=== PATIENT | female | born 1990 | race Caucasian/White ===

== ENCOUNTER → 2016-08-07 | Outpatient (REF) | payer OTHER | END | disposition home or self-care (01) | LOC: M LAB REF 10:34 | PROVIDERS: ATTEND Physician Assistant | DX: J02.9 Acute pharyngitis, unspecified (principal) ==

== ENCOUNTER 2016-09-09 21:11 | Emergency (ER) | payer BC, SELFPAY ==
[~2016-09-09] VITALS: Ht 170.2 cm; Wt 70.3 kg
[2016-09-09 21:12] VITALS: BP 142/92
[2016-09-09] MEDS ORDERED: TIZA2CAP3 PO (21:19)
[2016-09-09] MEDS ORDERED: NORT25CA2 PO (21:19)
[2016-09-09] MEDS ORDERED: predniSONE 20 MG TAB PO ONE (23:30)
[2016-09-09] MEDS ORDERED: FAMOTIDINE 20 MG TAB PO ONE (23:30)
== END 2016-09-09 23:42 | disposition home or self-care (01) ==
LOC: M ED 21:56
DX: R22.0 Localized swelling, mass and lump, head (principal); Z79.899 Other long term (current) drug therapy

== ENCOUNTER → 2018-03-05 | Outpatient (CLI) | payer BC | LOC: M WUC 14:38 | DX: M25.511 Pain in right shoulder (principal) ==

== ENCOUNTER → 2020-02-11 | Outpatient (REF) | payer OTHER, SELFPAY ==
[~2020-02-11] MED LIST: NORT25CA2 PO; TIZA2CAP PO
[2020-02-11 17:48] LABS: APPEARANCE, URINE HAZY (CLEAR); BACTERIA, URINE AUTO 2+ (NEGATIVE); BILIRUBIN, URINE AUTO NEGATIVE (NEGATIVE); BLOOD, URINE BLOOD 1+ (NEGATIVE); COLOR, URINE YELLOW (YELLOW); GLUCOSE, URINE (UA) AUTO NEGATIVE (NEGATIVE); KETONE, URINE AUTO NEGATIVE (NEGATIVE); LEUKOCYTE ESTERASE, URINE AUTO 3+ (NEGATIVE); NITRITE, URINE AUTO POSITIVE (NEGATIVE); PROTEIN, URINE AUTO NEGATIVE (NEGATIVE); RBC, URINE AUTO 2 /HPF (0-3); SPECIFIC GRAVITY URINE AUTO 1.008 (1.002-1.035); SQUAMOUS EPITHELIAL CELL UR AU 2 /HPF (0-6); UROBILINOGEN, URINE AUTO 0.2 mg/dL (0.0-2.0); WBC, URINE AUTO 102 /HPF (0-3)
== END ==
LOC: M LAB 17:20
PROVIDERS: ATTEND Physician Assistant Medical
DX: N39.0 Urinary tract infection, site not specified (principal)

== ENCOUNTER 2020-08-08 11:49 | Emergency (ER) | payer BC, SELFPAY ==
[~2020-08-08] VITALS: Ht 167.6 cm; Wt 78.4 kg
--- OUTSIDE RECORDS SUMMARY | 2020-08-08 11:54 | CCD | Continuity of Care Document ---
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 for 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 (general) (routine) w/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 Encounter for oth general cnsl and advice on contraception Encounter for surveillance of contraceptive pills Human immunodeficiency virus [HIV] counseling Acute vaginitis Candidiasis of vulva and vagina Pruritus vulvae Other specified noninflammatory disorders of vagina Encounter for test, result negative Other sex counseling Encounter for oth general cnsl and advice on contraception Candidiasis of vulva and vagina Human immunodeficiency virus [HIV] counseling Encntr screen for infections w sexl mode of transmiss High risk heterosexual behavior Other sex counseling Encounter for oth general cnsl and advice on contraception Encounter for screening for human immunodeficiency virus Encounter for surveillance of contraceptive pills 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 for 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 (general) (routine) w/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 Encounter for surveillance of contraceptive pills Encounter for test, result negative Encounter for ot general cnsl and advice on contraception Other sex counseling Encounter for surveillance of contraceptive pills Encounter for initial prescription of contraceptive pills Encounter for test, result negative Encounter for initial prescription of contraceptive pills Encounter for ot general cnsl and advice on contraception Other sex counseling Human immunodeficiency virus [HIV] counseling Encounter for test, result negative Encntr screen for infections w sexl mode of transmiss High risk heterosexual behavior Encntr for 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 (general) (routine) w/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 Other sex counseling Encounter for ot general cnsl and advice on contraception Candidiasis of vulva and vagina Other specified noninflammatory disorders of vagina Encounter for ot general cnsl and advice on contraception Encntr screen for infections w sexl mode of transmiss High risk heterosexual behavior Encounter for ot general cnsl and advice on contraception Human immunodeficiency virus [HIV] counseling Encounter for test, result negative 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 for 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 (general) (routine) w/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 Encntr screen for infections w sexl mode of transmiss High risk heterosexual behavior Encounter for initial prescription of contraceptive pills Encounter for ot screening for malignant neoplasm of breast Human immunodeficiency virus [HIV] counseling Encntr screen for infections w sexl mode of transmiss High risk heterosexual behavior Encounter for ot general cnsl and advice on contraception Encounter for surveillance of contraceptive pills Other specified noninflammatory disorders of vagina Candidiasis of vulva and vagina Encounter for ot general cnsl and advice on contraception Encounter for surveillance of contraceptive pills Other chlamydial infection of lower genitourinary tract Encounter for test, result negative Encounter for initial prescription of contraceptive pills Encntr screen for infections w sexl mode of transmiss High risk heterosexual behavior Encounter for surveillance of injectable contraceptive Encounter for ot general cnsl and advice on contraception Other chlamydial infection of lower genitourinary tract Person consulting for explanation of exam or test findings Human immunodeficiency virus [HIV] counseling Dysuria Encounter for surveillance of injectable contraceptive Encounter for ot general cnsl and advice on contraception Encntr screen for infections w sexl mode of transmiss High risk heterosexual behavior Ulceration of vagina Encounter for test, result negative Encntr for 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 (general) (routine) w/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 Encounter for oth general cnsl and advice on contraception Encounter for initial prescription of injectable contracep Encntr screen for infections w sexl mode of transmiss High risk heterosexual behavior Other specified noninflammatory disorders of vagina Acute vaginitis Encounter for screening for malignant neoplasm of cervix Human immunodeficiency virus [HIV] counseling Chlamydial infection - Active Chlamydia PCR positive - Active Procedures Procedure Date URINE TEST CHYLMD TRACH, URINE N.GONORRHOEAE, URINE CHYLMD TRACH, Pharyngeal N.GONORRHOEAE, Pharyngeal CHYLMD TRACH, Rectal N.GONORRHOEAE, Rectal PREV VISIT, EST, AGE 18-39 HCS Without Test CVR Blood Pressure CVR Med.Svc. Thyroid Palp. CVR Med.Svc. Heart/Lung Ausc. CVR Med.Svc. Breast Exam CVR Med.Svc. Abdominal Palp. CVR Med.Svc. Extremities CVR Med.Svc. Method Initiation CVR Med.Svc. Method Cessation CVR Construction Project Manager.Svc. Contraceptive CVR Construction Project Manager.Svc. Other CVR Construction Project Manager.Svc. STI / H Results Test Name Date and Time Measure Units Reference Range Abnormal Flag St atus Comments Panel Description: High Sensitivity Urine Test Fi nal High Sensitivity Urine Test 10:47:50 N egativeLot: [id number]: 02/18/2022 Final Advance Directives Directive Yes / No Effective Date File Name No Information Encounters Encounter Description Practice Location Reason(s) For Visit Diagnose s Date Provider Providers Copied on Encounter PREV VISIT, EST, AGE 18-39 [facility], [address] [place], [place], [id number], tel:[phone] [facility] [place] Prevent ative Visit (chief complaint) Encounter for test, result neg ativeEncounter for oth general cnsl and advice on contraceptionEncounter for surveillance of contraceptive pillsOther sex counselingEncntr screen for infections w sexl mode of transmissHuman immunodeficiency virus [HIV] counselingEncntr for 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 (general) (routine) w/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 Adrienne Faulkner. [address] [place] [address], [id number], . tel:[phone] Referring Provider: Lucie Parish, [address] [place] [address], [id number]. tel:[phone] [facility], [address] [place] [address], [id number], tel:[phone] [facility] [place] No Information Valentin everett Quezada. [address] [place] [address], [id number], [place]. tel:[phone] [facility], [address] [place] [address], [id number], tel:[phone] [facility] [place] Encounter for oth g eneral cnsl and advice on contraceptionEncounter for surveillance of contraceptive pillsHuman immunodeficiency virus [HIV] counselingAcute vaginitisCandidiasis of vulva and vaginaPruritus vulvaeOther specified noninflammatory disorders of vagina Sammy Pizarro. [address] [place] [address], [id number], [place]. tel:[phone] Referring Provider: Moira Christianson, [address] [place] [address], [id number]. tel:[phone] [facility], [address] [place] [address], [id number], [place] tel:[phone] [facility] Encounter for pregn mckinley test, result negativeOther sex counselingEncounter for oth general cnsl and advice on contraceptionCandidiasis of vulva and vagina Lizett cullen. [address] [place] [address], [id number], . tel:[phone] Referring Provider: Jocy Phoenix, [address] [place] [address], [id number]. tel:[phone] [facility] [place], [address] [place] [address], [id number], [place] tel:[phone] [facility] [place] Human immunodeficie ncy virus [HIV] counselingEncntr screen for infections w sexl mode of transmissHigh risk heterosexual behaviorOther sex counselingEncounter for oth general cnsl and advice on contraceptionEncounter for screening for human immunodeficiency virusEncounter for surveillance of contraceptive pillsEncntr for 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 (general) (routine) w/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Body mass index (BMI) 25.0-25.9, adult Lizett Sandra. [address] [place] [address], [address] [place] [address], [place]. tel:[phone] Referring Provider: Jocy Phoenix, [address] [place] [address], [id number]. tel:[phone] [facility], [address] [place] [address], [id number], [place] tel:[phone] [facility] Encounter for surve illance of contraceptive pills Ramona Gamino. [address] [place], [place], [id number]. tel:[phone] [facility] [place], [address] [place] [address], [id number], [place] tel:[phone] [facility] Encounter for pregn mckinley test, result negativeEncounter for oth general cnsl and advice on contraceptionOther sex counselingEncounter for surveillance of contraceptive pillsEncounter for initial prescription of contraceptive pills Jin Watts. [address] [place] [address], [id number], [place]. tel:[phone] Referring Provider: Stefanie Abdi, [address] [place], [place], [id number]. tel:[phone] [facility], [address], [place], [id number], [place] tel:[phone] [facility] Encounter for pregn mckinley test, result negativeEncounter for initial prescription of contraceptive pillsEncounter for oth general cnsl and advice on contraceptionOther sex counseling Jin Watts. [address] [place], [place], [id number], [place]. tel:[phone] Referring Provider: Stefanie Abdi, [address] [place], [place], [id number]. tel:[phone] [facility], [address] [place] [address], [id number], [place] tel:[phone] [facility] Human immunodeficie ncy virus [HIV] counselingEncounter for test, result negativeEncntr screen for infections w sexl mode of transmissHigh risk heterosexual behaviorEncntr for 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 (general) (routine) w/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Other sex counselingEncounter for oth general cnsl and advice on contraceptionBody mass index (BMI) 26.0-26.9, adultCandidiasis of vulva and vagina Jin Watts. [address] [place], [place], [id number], [place]. tel:[phone] Referring Provider: Stefanie Abdi, [address] [place], [place], [id number]. tel:[phone] [facility], [address] [place] [address], [id number], [place] tel:[phone] [facility] Other specified non inflammatory disorders of vaginaEncounter for oth general cnsl and advice on contraceptionEncntr screen for infections w sexl mode of transmissHigh risk heterosexual behavior Clemente Tomlin. [address] [place], [place], [id number]. tel:[phone] Referring Provider: Sada Cornejo, [address] [place], [place], [id number]. tel:[phone] [facility], [address] [place] [address], [id number], tel:[phone] [facility] [place] Encounter for oth g eneral cnsl and advice on contraceptionHuman immunodeficiency virus [HIV] counselingEncounter for test, result negativeEncntr for 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 (general) (routine) w/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Encntr screen for infections w sexl mode of transmissHigh risk heterosexual behaviorEncounter for initial prescription of contraceptive pillsEncounter for oth screening for malignant neoplasm of breast Clemente Tomlin. [address] [place] [address], [id number]. tel:[phone] Referring Provider: Sada Cornejo, [address] [place] [address], [id number]. tel:[phone] [facility], [address] [place] [address], [id number], [place] tel:[phone] [facility] [place] Human immunodeficie ncy virus [HIV] counselingEncntr screen for infections w sexl mode of transmissHigh risk heterosexual behaviorEncounter for oth general cnsl and advice on contraceptionEncounter for surveillance of contraceptive pillsOther specified noninflammatory disorders of vaginaCandidiasis of vulva and vagina King Adeline. [address] [place] [address], [id number]. tel:[phone] Referring Provider: Adeline Mock, [address] [place] [address], [id number]. tel:[phone] [facility], [address] [place] [address], [id number], [place] tel:[phone] [facility] Encounter for oth g eneral cnsl and advice on contraceptionEncounter for surveillance of contraceptive pillsOther chlamydial infection of lower genitourinary tract Dieudonne gomez Leigh. [address] [place], [place], [id number], [place]. tel:[phone] [facility], [address], [place], [id number], [place] tel:[phone] [facility] Encounter for pregn mckinley test, result negativeEncounter for initial prescription of contraceptive pillsEncntr screen for infections w sexl mode of transmissHigh risk heterosexual behavior Ramón Ro. [address] [place], [place], [id number]. tel:[phone] [facility], [address], [place], [id number], [place] tel:[phone] [facility] [place] Encounter for surve illance of injectable contraceptiveEncounter for oth general cnsl and advice on contraceptionOther chlamydial infection of lower genitourinary tractPerson consulting for explanation of exam or test findings Marilyn Eugene. [address] [place], [place], [id number], [place]. tel:[phone] Referring Provider: Valorie Sanders, [address] [place] [address], [id number]. tel:[phone] [facility], [address] [place] [address], [id number], [place] tel:[phone] [facility] Human immunodeficie ncy virus [HIV] counselingDysuriaEncounter for surveillance of injectable contraceptiveEncounter for oth general cnsl and advice on contraceptionEncntr screen for infections w sexl mode of transmissHigh risk heterosexual behaviorUlceration of vagina Marilyn Eugene. [address] [place], [place], [id number], [place]. tel:[phone] Referring Provider: Valorie Sanders, [address] [place], [place], [id number]. tel:[phone] [facility], [address] [place] [address], [id number], tel:[phone] [facility] Encounter for pregn mckinley test, result negativeEncntr for 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 (general) (routine) w/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Encounter for oth general cnsl and advice on contraceptionEncounter for initial prescription of injectable contracepEncntr screen for infections w sexl mode of transmissHigh risk heterosexual behaviorOther specified noninflammatory disorders of vaginaAcute vaginitisEncounter for screening for malignant neoplasm of cervix Human immunodeficiency virus [HIV] counseling Ramón roman. [address] [place] [address], [id number]. tel:[phone] Referring Provider: Ro Melgar, [address] [place] [address], [id number]. tel:[phone] Family History Family Member Diagnosis Age At Onset Mother No history of Stroke Father No history of Stroke Sister No history of Myocardial infarction Maternal grandmother Cancer, unknown 50 Father Hypertension Sister No history of Stroke Father High cholesterol 1st degree relative No hx of coronary heart disease (female <65, male <55) Father No history of Myocardial infarction Mother No history of Myocardial infarction Brother No history of Stroke Paternal grandfather Alcoholism 1st degree relative No hx of venous thromboembolism 1st degree relative No hx of cancer of breast, colon, endome trium or ovary Immunizations Vaccine Date Status Comments No Information Payers Payer name Insurance type Covered republican ID Authorization(s ) Exchange [facility] [id number] Social History Type Description Quantity Date Captured Comments Alcohol Use Details Unknown Caffeine Use Details Unknown Tobacco Use Status No Information Smoking Status Never smoker Sex Female Vital Signs Date / Time: Height Weight BMI Pulse Rate Blood Pressure Temperatu re Respiratory Rate Body Surface Area Head Circumference BMI percentile Pulse Ox In haled Ox 10:34 AM 66.00 in 175.60 lbs 28.34 kg/meter(2) 122/7 8 mm[Hg] Chief Complaint And Reason For Visit Most recent encounter only, dated '07/31/2020 10:15'. Preventative Visit (chief complaint) Reason For Referral Reason For Referral No Information Plan Of Treatment Date Type Action Status Goal Dietary management education, gu idance, and counseling completed Appointment Carmen Anglin BOOKED History Of Present Illness Encounter Date Complaint History Of Present I llness No Information Functional Status Date Functional Assessment No Information Medications Administered Medication Instructions Dosage Effective Dates (start - stop) Sta tus Comments No Information Instructions Date Instruction Additional Informati on Dietary management education, guidance, and counseling Related to Body mass index (BMI) 25.0-25.9, adult Assessments Type Assessment Date assessment Encounter for test, result neg ative assessment Encounter for oth general cnsl and advic e on contraception assessment Encounter for surveillance of contracept jodie pills assessment Other sex counseling assessment Encntr screen for infections w sexl mode of transmiss assessment Human immunodeficiency virus [HIV] couns eling assessment 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 Anterior palpation - Normal. No abdominal tenderness. No hepatic enlargement. No splenic enlargement. No palpable mass. Cardiovascular Normal Heart rate - Regular rate. Rhythm - Regular. Heart sounds - Normal S1, Normal S2. Murmurs - None. Extremities - No edema. Extremity Normal No Cyanosis. No Neo a. Neck Exam Normal Inspection - Normal. Palpation - Normal. Thyroid gland - Normal. Cervical lymph nodes - Normal. Neurological Normal Level of consciousne ss - Normal. Orientation - Normal. Respiratory Normal Inspection - Normal. Auscultation - Normal. Effort - Normal. Skin Normal Inspection - Normal. Palpation/texture - Normal. Breast Normal Inspection - Bilater al: Normal. Palpation - Bilateral: Normal. Nipples - Bilateral: Normal. Lymph nodes - Normal.
[2020-08-08] MEDS ORDERED: ISIB1TAB (11:55)
[2020-08-08] MEDS ORDERED: IBUP200C25 PO (11:55)
--- OUTSIDE RECORDS SUMMARY | 2020-08-08 11:55 | CCD | Continuity of Care Document ---
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 Encounter [...] for surveillance of contraceptive pills Encntr for administrative office specialist exam (general) (routine) w/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 Encounter [...] transmiss High risk heterosexual behavior Encntr for administrative office specialist exam (general) (routine) w/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 Other [...] Encounter for test, result negative Encntr for administrative office specialist exam (general) (routine) w/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 Encntr [...] Encounter for test, result negative Encntr for administrative office specialist exam (general) (routine) w/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 Encounter [...] PCR positive - Active Procedures Procedure Date No Information Results Test Name Date and Time Measure Units Reference Range Abnormal Flag St atus Comments No Information Advance Directives Directive Yes / No Effective Date File Name No Information Encounters Encounter Description Practice Location Reason(s) For Visit Diagnose s Date Provider Providers Copied on Encounter [facility], [address] [place] [address], [id number], tel:[phone] [facility] [place] Encounter for pregn mckinley test, result negativeEncounter for oth general cnsl and advice on contraceptionEncounter for surveillance of contraceptive pillsOther sex counselingEncntr screen for infections w sexl mode of transmissHuman immunodeficiency virus [HIV] counselingEncntr for administrative office specialist exam (general) (routine) w/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 Adrienne Faulkner. [address] [place] [address], [id number], [place]. tel:[phone] Referring Provider: Lucie Parish, [address] [place] [address], [id number]. tel:[phone] [facility], [address] [place] [address], [id number], [place] tel:[phone] GAVI [place] No Information Gr everett Quezada. [address] [place] [address], [id number], [place]. tel:[phone] [facility], [address] [place] [address], [id number], [place] tel:[phone] [facility] [place] Encounter for oth g eneral cnsl and advice on contraceptionEncounter for surveillance of contraceptive pillsHuman immunodeficiency virus [HIV] counselingAcute vaginitisCandidiasis of vulva and vaginaPruritus vulvaeOther specified noninflammatory disorders of vagina Sammy Pizarro. [address] [place] [address], [id number], [place]. tel:[phone] Referring Provider: Moira Christianson, [address] [place], [place], [id number]. tel:[phone] [facility], [address] [place] [address], [id number], [place] tel:[phone] [facility] Encounter for pregn mckinley test, result negativeOther sex counselingEncounter for oth general cnsl and advice on contraceptionCandidiasis of vulva and vagina Lizett cullen. [address] [place] [address], [id number], . tel:[phone] Referring Provider: Jocy Phoenix, [address] [place] [address], [id number]. tel:[phone] [facility], [address] [place] [address], [id number], [place] tel:[phone] [facility] Human immunodeficie ncy virus [HIV] counselingEncntr screen for infections w sexl mode of transmissHigh risk heterosexual behaviorOther sex counselingEncounter for oth general cnsl and advice on contraceptionEncounter for screening for human immunodeficiency virusEncounter for surveillance of contraceptive pillsEncntr for administrative office specialist exam (general) (routine) w/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Body mass index (BMI) 25.0-25.9, adult Lizett Sandra. [address] [place] [address], [id number], [place]. tel:[phone] Referring Provider: Jocy Phoenix, [address] [place] [address], [id number]. tel:[phone] [facility], [address] [place] [address], [id number], [place] tel:[phone] [facility] Encounter for surve illance of contraceptive pills Ramona Gamino. [address] [place], [place], [id number]. tel:[phone] [facility], [address] [place] [address], [id number], tel:[phone] [facility] Encounter for pregn mckinley test, result negativeEncounter for oth general cnsl and advice on contraceptionOther sex counselingEncounter for surveillance of contraceptive pillsEncounter for initial prescription of contraceptive pills Jin Watts. [address] [place], [place], [id number], [place]. tel:[phone] Referring Provider: Stefanie Abdi, [address] [place] [address], [address] [place] [address]. tel:[phone] [facility], [address] [place] [address], [id number], tel:[phone] [facility] Encounter for pregn mckinley test, result negativeEncounter for initial prescription of contraceptive pillsEncounter for oth general cnsl and advice on contraceptionOther sex counseling Jin Watts. [address] [place] [address], [id number], . tel:[phone] Referring Provider: Stefanie Abdi, [address] [place], [place], [id number]. tel:[phone] [facility], [address] [place] [address], [id number], tel:[phone] [facility] Human immunodeficie ncy virus [HIV] counselingEncounter for test, result negativeEncntr screen for infections w sexl mode of transmissHigh risk heterosexual behaviorEncntr for administrative office specialist exam (general) (routine) w/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Other sex counselingEncounter for oth general cnsl and advice on contraceptionBody mass index (BMI) 26.0-26.9, adultCandidiasis of vulva and vagina Jin Watts. [address] [place], [place], [id number], [place]. tel:[phone] Referring Provider: Stefanie Abdi, [address] [place] [address], [id number]. tel:[phone] [facility], [address] [place] [address], [id number], [place] tel:[phone] [facility] Other specified non inflammatory disorders of vaginaEncounter for oth general cnsl and advice on contraceptionEncntr screen for infections w sexl mode of transmissHigh risk heterosexual behavior Clemente Tomlin. [address] [place], [place], [id number]. tel:[phone] Referring Provider: Sada Cornejo, [address] [place], [place], [id number]. tel:[phone] [facility], [address] [place] [address], [id number], [place] tel:[phone] [facility] [place] Encounter for oth g eneral cnsl and advice on contraceptionHuman immunodeficiency virus [HIV] counselingEncounter for test, result negativeEncntr for administrative office specialist exam (general) (routine) w/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Encntr screen for infections w sexl mode of transmissHigh risk heterosexual behaviorEncounter for initial prescription of contraceptive pillsEncounter for oth screening for malignant neoplasm of breast Clemente Tomlin. [address] [place] [address], [id number]. tel:[phone] Referring Provider: Sada Cornejo, [address] [place] [address], [id number]. tel:[phone] [facility], [address] [place] [address], [id number], [place] tel:[phone] [facility] Human immunodeficie ncy virus [HIV] counselingEncntr screen for infections w sexl mode of transmissHigh risk heterosexual behaviorEncounter for oth general cnsl and advice on contraceptionEncounter for surveillance of contraceptive pillsOther specified noninflammatory disorders of vaginaCandidiasis of vulva and vagina King Adeline. [address] [place], [place], [id number]. tel:[phone] Referring Provider: Adeline Mock, [address] [place], [place], [id number]. tel:[phone] [facility], [address] [place] [address], [id number], [place] tel:[phone] [facility] Encounter for oth g eneral cnsl and advice on contraceptionEncounter for surveillance of contraceptive pillsOther chlamydial infection of lower genitourinary tract Dieudonne Abraham. [address] [place], [place], [id number], [place]. tel:[phone] [facility], [address] [place] [address], [id number], [place] tel:[phone] [facility] Encounter for pregn mckinley test, result negativeEncounter for initial prescription of contraceptive pillsEncntr screen for infections w sexl mode of transmissHigh risk heterosexual behavior Ramón Starr. [address] [place] [address], [id number]. tel:[phone] [facility], [address] [place] [address], [id number], [place] tel:[phone] [facility] Encounter for surve illance of injectable contraceptiveEncounter for oth general cnsl and advice on contraceptionOther chlamydial infection of lower genitourinary tractPerson consulting for explanation of exam or test findings Marilyn Eugene. [address] [place], [place], [id number], [place]. tel:[phone] Referring Provider: Valorie Sanders, [address] [place] [address], [id number]. tel:[phone] [facility], [address] [place] [address], [id number], [place] tel:[phone] [facility] Human immunodeficie ncy virus [HIV] counselingDysuriaEncounter for surveillance of injectable contraceptiveEncounter for oth general cnsl and advice on contraceptionEncntr screen for infections w sexl mode of transmissHigh risk heterosexual behaviorUlceration of vagina Marilyn Eugene. [address] [place] [address], [address] [place] [address], . tel:[phone] Referring Provider: Valorie Sanders, [address] [place] [address], [id number]. tel:[phone] [facility], [address] [place] [address], [id number], tel:[phone] [facility] [place] Encounter for pregn mckinley test, result negativeEncntr for administrative office specialist exam (general) (routine) w/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Encounter for oth general cnsl and advice on contraceptionEncounter for initial prescription of injectable contracepEncntr screen for infections w sexl mode of transmissHigh risk heterosexual behaviorOther specified noninflammatory disorders of vaginaAcute vaginitisEncounter for screening for malignant neoplasm of cervix Human immunodeficiency virus [HIV] counseling Ramón roman. [address] [place] [address], [id number]. tel:[phone] Referring Provider: Ro Melgar, [address] [place] [address], [id number]. tel:[phone] Family History Family Member Diagnosis Age At [...] type Covered republican ID Authorization(s ) Exchange [facility] [id number] Social History Type Description Quantity Date Captured Comments Alcohol Use Details Unknown Caffeine Use Details Unknown Tobacco Use Status No Information Smoking Status Never smoker Sex Female Vital Signs Date / Time: Height Weight BMI Pulse Rate Blood Pressure Temperatu re Respiratory Rate Body Surface Area Head Circumference BMI percentile Pulse Ox In haled Ox No Information Chief Complaint And Reason For Visit No Information Reason For Referral Reason For Referral No [...] (BMI) 25.0-25.9, adult Assessments Type Assessment Date No Information Goals Health Concern Goal Type Priority Status Date No Information Medical Equipment Description Device [place] Device Identifier Effective Jigar es (start - stop) Status No Information Mental Status Date Cognitive Assessment No Information Health Concerns Observation Date No Information Concern Status Date No Information Physical Examination Exam Findings Details No Information
--- OUTSIDE RECORDS SUMMARY | 2020-08-08 11:55 | CCD | Continuity of Care Document ---
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 Name Role Phone Sammy KOROMA, Moira Unavailable Unavailable Allergies, Adverse Reactions, Alerts Substance Reaction Status Criticality No Known Allergies Active No Information Medications Medication Instructions Dosage Effective Dates (start - stop) Sta tus Comments No Information Problems Condition Effective Dates (start - stop) Clinical Status C omments Body mass index (BMI) 25.0-25.9, adult - Body mass index (BMI) 26.0-26.9, adult - Encounter for oth general cnsl and advice [...] for surveillance of contraceptive pills 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/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 Encounter for surveillance of contraceptive pills Encounter for test, result negative Encounter for oth general cnsl and advice on contraception Other sex counseling Encounter for surveillance of contraceptive pills Encounter for initial prescription of contraceptive pills Encounter for test, result negative Encounter for initial prescription of contraceptive pills Encounter for oth general cnsl and advice on contraception Other sex counseling Human immunodeficiency virus [HIV] counseling Encounter for test, result negative Encntr screen for infections w sexl mode of transmiss High risk heterosexual behavior 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/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 Other sex counseling Encounter for oth general cnsl and advice on contraception Candidiasis of vulva and vagina Other specified noninflammatory disorders of vagina Encounter for oth general cnsl and advice on contraception Encntr screen for infections w sexl mode of transmiss High risk heterosexual behavior Encounter for ot general cnsl and advice on contraception Human immunodeficiency virus [HIV] counseling Encounter for test, result negative 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 [address] [place] [address], [id number], . tel:[phone] [facility] [place], [address] [place] [address], [id number], tel:[phone] [facility] [place] Encounter for oth g eneral cnsl and advice on contraceptionEncounter for surveillance of contraceptive pillsHuman immunodeficiency virus [HIV] counselingAcute vaginitisCandidiasis of vulva and vaginaPruritus vulvaeOther specified noninflammatory disorders of vagina Sammy Pizarro. [address] [place] [address], [address] [place] [address], . tel:[phone] Referring Provider: Moira Christianson, [address] [place] [address], [id number]. tel:[phone] [facility] [place], [address] [place] [address], [id number], [place] tel:[phone] [facility] Encounter for pregn mckinley test, result negativeOther sex counselingEncounter for oth general cnsl and advice on contraceptionCandidiasis of vulva and vagina Lizett cullen. [address] [place] [address], [id number], . tel:[phone] Referring Provider: Jocy Phoenix, [address] [place] [address], [id number]. tel:[phone] [facility] [place], [address] [place] [address], [id number], [place] tel:[phone] [facility] Human immunodeficie ncy virus [HIV] counselingEncntr screen for infections w sexl mode of transmissHigh risk heterosexual behaviorOther sex counselingEncounter for oth general cnsl and advice on contraceptionEncounter for screening for human immunodeficiency virusEncounter for surveillance of contraceptive pills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/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Body mass index (BMI) 25.0-25.9, adult Lizett Sandra. [address] [place] [address], [id number], . tel:[phone] Referring Provider: Jocy Phoenix, [address] [place], [place], [id number]. tel:[phone] [facility], [address] [place] [address], [id number], [place] tel:[phone] [facility] [place] Encounter for surve illance of contraceptive pills Ramona Stevenson. [address] [place] [address], [id number]. tel:[phone] [facility], [address] [place] [address], [id number], [place] tel:[phone] [facility] [place] Encounter for pregn mckinley test, result negativeEncounter for oth general cnsl and advice on contraceptionOther sex counselingEncounter for surveillance of contraceptive pillsEncounter for initial prescription of contraceptive pills Jin Watts. [address] [place] [address], [id number], [place]. tel:[phone] Referring Provider: Stefanie Abdi, [address] [place] [address], [id number]. tel:[phone] [facility], [address] [place] [address], [id number], [place] tel:[phone] [facility] [place] Encounter for pregn mckinley test, result negativeEncounter for initial prescription of contraceptive pillsEncounter for oth general cnsl and advice on contraceptionOther sex counseling Jin Watts. [address] [place] [address], [id number], [place]. tel:[phone] Referring Provider: Stefanie Abdi, [address] [place], [place], [id number]. tel:[phone] [facility], [address] [place] [address], [id number], tel:[phone] [facility] [place] Human immunodeficie ncy virus [HIV] counselingEncounter for test, result negativeEncntr screen for infections w sexl mode of transmissHigh risk heterosexual behavior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/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Other sex counselingEncounter for oth general cnsl and advice on contraceptionBody mass index (BMI) 26.0-26.9, adultCandidiasis of vulva and vagina Jin Watts. [address] [place] [address], [id number], . tel:[phone] Referring Provider: Stefanie Abdi, [address] [place] [address], [id number]. tel:[phone] [facility], [address] [place] [address], [id number], [place] tel:[phone] [facility] [place] Other specified non inflammatory disorders of vaginaEncounter for oth general cnsl and advice on contraceptionEncntr screen for infections w sexl mode of transmissHigh risk heterosexual behavior Clemente Tomlin. [address] [place] [address], [id number]. tel:[phone] Referring Provider: Sada Cornejo, [address] [place] [address], [id number]. tel:[phone] [facility], [address] [place] [address], [id number], [place] tel:[phone] [facility] [place] Encounter for oth g eneral cnsl and advice on contraceptionHuman immunodeficiency virus [HIV] counselingEncounter for test, result negative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/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Encntr screen for infections w sexl mode of transmissHigh risk heterosexual behaviorEncounter for initial prescription of contraceptive pillsEncounter for oth screening for malignant neoplasm of breast Clemente Sada. [address] [place], [place], [id number]. tel:[phone] Referring Provider: Sada Cornejo, [address] [place], [place], [id number]. tel:[phone] [facility], [address] [place] [address], [id number], [place] tel:[phone] [facility] [place] Human immunodeficie ncy virus [HIV] counselingEncntr screen for infections w sexl mode of transmissHigh risk heterosexual behaviorEncounter for oth general cnsl and advice on contraceptionEncounter for surveillance of contraceptive pillsOther specified noninflammatory disorders of vaginaCandidiasis of vulva and vagina King Adeline. [address] [place], [place], [id number]. tel:[phone] Referring Provider: Adeline Mock, [address] [place], [place], [id number]. tel:[phone] [facility] [place], [address] [place] [address], [id number], [place] tel:[phone] [facility] [place] Encounter for oth g eneral cnsl and advice on contraceptionEncounter for surveillance of contraceptive pillsOther chlamydial infection of lower genitourinary tract Dieudonne Abraham. [address] [place], [place], [id number], [place]. tel:[phone] [facility] [place], [address] [place], [place], [id number], [place] tel:[phone] [facility] [place] Encounter for pregn mckinley test, result negativeEncounter for initial prescription of contraceptive pillsEncntr screen for infections w sexl mode of transmissHigh risk heterosexual behavior Ramón Starr. [address] [place], [place], [id number]. tel:[phone] [facility] [place], [address] [place], [place], [id number], tel:[phone] [facility] Encounter for surve illance of injectable contraceptiveEncounter for oth general cnsl and advice on contraceptionOther chlamydial infection of lower genitourinary tractPerson consulting for explanation of exam or test findings Marilyn Eugene. [address] [place], [place], [id number], [place]. tel:[phone] Referring Provider: Valorie Sanders, [address] [place] [address], [id number]. tel:[phone] [facility] [address], [id number], [place] tel:[phone] [facility] Human immunodeficie ncy virus [HIV] counselingDysuriaEncounter for surveillance of injectable contraceptiveEncounter for oth general cnsl and advice on contraceptionEncntr screen for infections w sexl mode of transmissHigh risk heterosexual behaviorUlceration of vagina Marilyn Eugene. [address] [place], [place], [id number], [place]. tel:[phone] Referring Provider: Valorie Sanders, [address] [place] [address], [id number]. tel:[phone] [facility] [address], [id number], [place] tel:[phone] [facility] Encounter for pregn mckinley test, result negative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/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Encounter for oth general cnsl and advice on contraceptionEncounter for initial prescription of injectable contracepEncntr screen for infections w sexl mode of transmissHigh risk heterosexual behaviorOther specified noninflammatory disorders of vaginaAcute vaginitisEncounter for screening for malignant neoplasm of cervix Human immunodeficiency virus [HIV] counseling Ramón roman. [address] [place] [address], [id number]. tel:[phone] Referring Provider: Ro Melgar, [address] [place], [place], [id number]. tel:[phone] Family History Family Member Diagnosis Age At [...] No history of Stroke Paternal grandfather Alcoholism Immunizations Vaccine Date Status Comments No Information Payers Payer name Insurance type Covered republican ID Authorization(s ) [id number] Social History Type Description Quantity Date Captured [...] management education, gu idance, and counseling completed History Of Present Illness Encounter Date Complaint [...] Date No Information Medical Equipment Description Device [place] Device Identifier Effective Jigar es (start - stop) Status No Information Mental Status Date Cognitive Assessment No Information Health Concerns Observation Date No Information Concern Status Date No Information Physical Examination Exam Findings Details No Information
--- OUTSIDE RECORDS SUMMARY | 2020-08-08 11:55 | CCD ---
Author Author [facility] Organization [facility] Address Unknown Phone Unavailable Care Team Providers Care Manganese Wheeler Name Role Phone Julius Barry MD Unavailable Unavailable Jhonny, Julius Roca MD Unavailable Unavailable Jhonny, Julius Roca MD Unavailable Unavailable Jhonny, Julius Roca MD Unavailable Unavailable Jhonny, Julius Roca MD Unavailable Unavailable Jhonny, Julius Roca MD Unavailable Unavailable Jhonny, Julius Roca MD Unavailable Unavailable Jhonny, Julius Roca MD Unavailable Unavailable Jhonny, Julius Roca MD Unavailable Unavailable Jhonny, Julius Roca MD Unavailable Unavailable Jhonny, Julius Roca MD Unavailable Unavailable Jhonny, Julius Roca MD Unavailable Unavailable Jhonny, Julius Roca MD Unavailable Unavailable Jhonny, Julius Roca MD Unavailable Unavailable Jhonny, Julius Roca MD Unavailable Unavailable Jhonny, Julius Roca MD Unavailable Unavailable Jhonny, Julius Roca MD Unavailable Unavailable Jhonny, Julius Roca MD Unavailable Unavailable Jhonny, Julius Roca MD Unavailable Unavailable Jhonny, Julius Roca MD Unavailable Unavailable Jhonny, Julius Roca MD Unavailable Unavailable Jhonny, Julius Roca MD Unavailable Unavailable Jhonny, Julius Roca MD Unavailable Unavailable Jhonny, Julius Roca MD Unavailable Unavailable Jhonny, Julius Roca MD Unavailable Unavailable Jhonny, Julius Roca MD Unavailable Unavailable Jhonny, Julius Roca MD Unavailable Unavailable Jhonny, Julius oRca MD Unavailable Unavailable Jhonny, Julius Roca MD Unavailable Unavailable Jhonny, Julius Roca MD Unavailable Unavailable Jhonny, Julius Roca MD Unavailable Unavailable Jhonny, Julius Roca MD Unavailable Unavailable Jhonny, Julius Roca MD Unavailable Unavailable Jhonny, Julius Roca MD Unavailable Unavailable Jhonny, Julius Roca MD Unavailable Unavailable Jhonny, Julius Roca MD Unavailable Unavailable Jhonny, A Chanelle KENNEDY Unavailable Unavailable Jhonny, A Chanelle KENNEDY Unavailable Unavailable Jhonny, A Chanelle KENNEDY Unavailable Unavailable Jhonny, A Chanelle KENNEDY Unavailable Unavailable Jhonny, Julius Roca MD Unavailable Unavailable Jhonny, A Chanelle KENNEDY Unavailable Unavailable Jhonny, Julius Roca MD Unavailable Unavailable Jhonny, A Chanelle KENNEDY Unavailable Unavailable Jhonny, A Chanelle KENNEDY Unavailable Unavailable Jhonny, Julius Roca MD Unavailable Unavailable Jhonny, A Chanelle KENNEDY Unavailable Unavailable Jhonny, A Chanelle KENNEDY Unavailable Unavailable Jhonny, Julius Roca MD Unavailable Unavailable Jhonny, Julius Roca MD Unavailable Unavailable Jhonny, Julius Roca MD Unavailable Unavailable Jhonny, A Chanelle KENNEDY Unavailable Unavailable Jhonny, A Chanelle KENNEDY Unavailable Unavailable Jhonny, A Chanelle KENNEDY Unavailable Unavailable Jhonny, A Chanelle KENNEDY Unavailable Unavailable Jhonny, A Chanelle KENNEDY Unavailable Unavailable Jhonny, A Chanelle KENNEDY Unavailable Unavailable Jhonny, A Chanelle KENNEDY Unavailable Unavailable Jhonny, A Chanelle KENNEDY Unavailable Unavailable Jhonny, A Chanelle KENNEDY Unavailable Unavailable Jhonny, A Chanelle KENNEDY Unavailable Unavailable Jhonny, A Chanelle KENNEDY Unavailable Unavailable Jhonny, A Chanelle KENNEDY Unavailable Unavailable Jhonny, A Chanelle KENNEDY Unavailable Unavailable Jhonny, A Chanelle KENNEDY Unavailable Unavailable Jhonny, A Chanelle KENNEDY Unavailable Unavailable Jhonny, A Chanelle KENNEDY Unavailable Unavailable Jhonny, A Chanelle KENNEDY Unavailable Unavailable Jhonny, A Chanelle KENNEDY Unavailable Unavailable Jhonny, A Chanelle KENNEDY Unavailable Unavailable Jhonny, A Chanelle KENNEDY Unavailable Unavailable Jhonny, Julius Roca MD Unavailable Unavailable Jhonny, Julius Roca MD Unavailable Unavailable Jhonny, Julius Roca MD Unavailable Unavailable Jhonny, Julius Roca MD Unavailable Unavailable Christianson, Moira Unavailable Unavailable Christianson, Moira Unavailable Unavailable Christianson, Moira Unavailable Unavailable Green CLINICAL APPLICATION CONSULTANT CLINICAL APPLICATION CONSULTANT, Pilar Unavailable Unavailable Green CLINICAL APPLICATION CONSULTANT CLINICAL APPLICATION CONSULTANT, Pilar Unavailable Unavailable Green CLINICAL APPLICATION CONSULTANT CLINICAL APPLICATION CONSULTANT, Pilar Unavailable Unavailable Bovalino, Paula PA Unavailable Unavailable Bovalino, Paula PA Unavailable Unavailable Bovalino, Paula PA Unavailable Unavailable Bovalino, Paula PA Unavailable Unavailable Bovalino, Paula PA Unavailable Unavailable Bovalino, Paula PA Unavailable Unavailable Bovalino, Paula PA Unavailable Unavailable Bovalino, Paula PA Unavailable Unavailable Bovalino, Paula PA Unavailable Unavailable Dwello PA PA, Lucie Unavailable Unavailable Dwello PA PA, Lucie Unavailable Unavailable Re-disclosure Warning The records that you are about to access may contain information from federally-assisted alcohol or drug abuse programs. If such information is present, then the following federally mandated warning applies: This information has been disclosed to you from records protected by federal confidentiality rules (42 CFR part 2). The federal rules prohibit you from making any further disclosure of this information unless further disclosure is expressly permitted by the written consent of the person to whom it pertains or as otherwise permitted by 42 CFR part 2. A general authorization for the release of medical or other information is NOT sufficient for this purpose. The Federal rules restrict any use of the information to criminally investigate or prosecute any alcohol or drug abuse patient.The records that you are about to access may contain highly sensitive health information, the redisclosure of which is protected by Article 27-F of the [facility] Public Health law. If you continue you may have access to information: Regarding HIV / AIDS; Provided by facilities licensed or operated by the [facility] Office of Mental Health; or Provided by the [facility] Office for People With Developmental Disabilities. If such information is present, then the following [facility] mandated warning applies: This information has been disclosed to you from confidential records which are protected by state law. State law prohibits you from making any further disclosure of this information without the specific written consent of the person to whom it pertains, or as otherwise permitted by law. Any unauthorized further disclosure in violation of state law may result in a fine or retirement sentence or both. A general authorization for the release of medical or other information is NOT sufficient authorization for further disc losure. Family History Family Member Name Family Member Gender Family Member Status Date o f Status Description Data Source(s) Unknown Female Diagnosis 04/19/2015 12:00:00 AM EDT [facility] ([facility]) Unknown Female Diagnosis 04/19/2015 12:00:00 AM EDT [facility] ([facility]) Unknown Unknown Problem [facility] ([facility]) Unknown Unknown Problem [facility] ([facility]) Unknown Unknown Problem [facility] ([facility]) Encounters Encounter Providers Location Date Indications Data Source(s ) Outpatient Attender: Paula VELAZQUEZ 08/08/2020 10:20:4 9 AM EST [facility] ([facility]) OutpatientPREV VISIT, EST, AGE 18-39 Attender: Lucie Springer 07/31/2020 10:15:00 AM EST - 07/31/2020 10:15:00 AM ES T 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) (routine) w/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Human immunodeficiency virus [HIV] counselingEncntr screen for infections w sexl mode of transmissOther sex counselingEncounter for surveillance of contraceptive pillsEncounter for oth general cnsl and advice on contraceptionEncounter for test, result negative [facility] ([facility]) 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) (routine) w/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 Human immunodeficiency virus [HIV] couns eling Encntr screen for infections w sexl mode of transmiss Other sex counseling Encounter for surveillance of contracept jodie pills Encounter for oth general cnsl and advic e on contraception Encounter for test, result neg ative Attender: Pilar Majano 12:50:00 PM EST - 07/29/2020 12:50:00 PM EST [facility] ([facility]) Attender: Moira Smart 07/24 09:21:00 AM EST - 07/24/2020 09:21:00 AM EST [facility] ([facility]) Attender: Chanelle Smart 1 06/26/2019 03:15:00 PM EST - 04/26/2020 03:15:00 PM EST [facility] ([facility]) OutpatientOFFICE VISIT, EST Attender: Moira Rivera sburg 01/24/2020 03:15:00 PM EDT - 01/24/2020 03:15:00 PM EDT Other specified noninflammatory disorders of vaginaPruritus vulvaeCandidiasis of vulva and vaginaAcute vaginitisHuman immunodeficiency virus [HIV] counselingEncounter for surveillance of contraceptive pillsEncounter for oth general cnsl and advice on contraception [facility] ([facility]) Other specified noninflammatory disorder s of vagina Pruritus vulvae Candidiasis of vulva and vagina Acute vaginitis Human immunodeficiency virus [HIV] couns elirubio Encounter for surveillance of contracept jodie pills Encounter for oth general cnsl and advic e on contraception Medications Medication Brand Name Start Date Product Form Dose Route Admi nistrative Instructions Pharmacy Instructions Status Indications Reaction Description Data Source(s) Lluvia-BE 0.35 mg tablet {28 (norethindrone 0.35 MG Oral Table t) } Pack 07/31/2020 12:00:00 AM EST 1.00 {tablet} ORAL active Lluvia-BE 28 Day Pack [facility] ([facility]) Isibloom 28 Day Pack 0.15-0.03 mg DESOGESTREL-ETHINYL ESTRAD IOL 07/29/2020 12:00:00 AM EST tablet 28 TAKE ONE TABLET BY MOUTH EVERY DAY TAKE ONE TABLET BY MOUTH EVERY DAY SOLD: 07/29/2020 [facility] Apri 0.15 mg-0.03 mg tablet {21 (desogestrel 0.15 MG / ethinyl estradiol 0.03 MG Oral Tablet) / 7 (inert ingredients 1 MG Oral Tablet) } Pack 07/29/2020 12:00:00 AM EST completed Apri 28 Day Pack [facility] ([facility]) 200 mg 02/11/2020 12:00:00 AM EDT tablet 6 TAKE ONE TABLET BY MOUTH THREE TIMES A DAY FOR 2 DAYS TAKE ONE TABLET BY MOUTH THREE TIMES A DAY FOR 2 DAYS SOLD: 02/12/2020 [facility] 100 mg 02/11/2020 12:00:00 AM EDT capsule 14 TAKE ONE CAPSULE BY MOUTH TWICE A DAY FOR 7 DAYS TAKE ONE CAPSULE BY MOUTH TWICE A DAY FOR 7 DAYS SOLD: 02/12/2020 [facility] Fluconazole 150 MG Oral Tablet fluconazole 150 mg tabl et fluconazole 150 mg tablet 01/24/2020 12:00:00 AM EDT active 1 po every 72 hours for 3 doses followed by 1 PO weekly for 6 months [facility] 150 mg 01/24/2020 12:00:00 AM EDT tablet 15 TAKE ONE TABLET BY MOUTH EVERY 72 HOURS FOR 3 DOSES FOLLOWED BY 1 TABLET WEEKLY FOR 6 MONTHS TAKE ONE TABLET BY MOUTH EVERY 72 HOURS FOR 3 DOSES FOLLOWED BY 1 TABLET WEEKLY FOR 6 MONTHS SOLD: 01/25/2020 [facility] Metronidazole 500 MG Oral Tablet metronidazole 500 mg tablet metronidazole 500 mg tablet 01/24/2020 12:00:00 AM EDT active 1 tab po bid x 7d (#14) [facility] ([facility]) Metronidazole 500 MG Oral Tablet METRONIDAZOLE 01/24/2020 12:0 0:00 AM EDT tablet 14 TAKE ONE TABLET BY MOUTH TWICE A DAY FOR 7 DAYS TAKE ONE TABLET BY MOUTH TWICE A DAY FOR 7 DAYS SOLD: 01/25/2020 [facility] Isibloom 28 Day Pack 0.15-0.03 mg DESOGESTREL-ETHINYL ESTRAD IOL 05/23/2019 12:00:00 AM EST tablet 84 TAKE ONE TABLET BY MOUTH EVERY DAY TAKE ONE TABLET BY MOUTH EVERY DAY SOLD: 11/14/2019 [facility] Isibloom 28 Day Pack 0.15-0.03 mg DESOGESTREL-ETHINYL ESTRAD IOL 05/23/2019 12:00:00 AM EST tablet 84 TAKE ONE TABLET BY MOUTH EVERY DAY TAKE ONE TABLET BY MOUTH EVERY DAY SOLD: 02/08/2020 [facility] 0.15-0.03 mg 05/23/2019 12:00:00 AM EST tablet 84 TAKE ONE TABLET BY MOUTH EVERY DAY TAKE ONE TABLET BY MOUTH EVERY DAY SOLD: 08/20/2019 [facility] Isibloom 28 Day Pack 0.15-0.03 mg DESOGESTREL-ETHINYL ESTRAD IOL 05/23/2019 12:00:00 AM EST tablet 84 TAKE ONE TABLET BY MOUTH EVERY DAY TAKE ONE TABLET BY MOUTH EVERY DAY SOLD: 05/03/2020 [facility] Apri 0.15 mg-0.03 mg tablet {21 (desogestrel 0.15 MG / ethinyl estradiol 0.03 MG Oral Tablet) / 7 (inert ingredients 1 MG Oral Tablet) } Pack 05/23/2019 12:00:00 AM EST active Apri 28 Day Pack [facility] ([facility]) Insurance Providers Payer name Policy type / Coverage type Policy ID Covered alliance party ID Covered alliance party's relationship to prieto Policy Prieto Plan Information SELF PAY ONLY UNAVAILABLE SP UNAV AILABLE [employer] Blue [employer] and Blue Shield [place] Blue Cross/B lue Shield [id number] Self [id number] [facility] [id number] SP [id number] [facility] [id number] SP [id number] [facility] Commercial [id number] Self [id number] EXCELLUS BCBS B [id number] S [id number] BC[employer] OF [place]AT[place] 306/806 [id number] SP [id number] [facility] Commercial [id number] Self [id number] BC/BS Of [place] Commercial [id number] Self [id number] [place] 306/806 [id number] SP [id number] BCBS/[place] Commercial Self BC/BS Of [place] Medigap Part B Self [facility] Commercial Self BCBS [place] PPO 302/307 [id number] [facility]) O [id number] S [id number] [facility] O [id number] S [id number] BC/BS OF [place] B [id number] S [place] [id number] BL[employer] BLUE SHI[employer]-CLINIC [id number] 19 [id number] SELF PAY UNAVAILABLE SP UNAVAILA BLE [employer]IN[employer] [id number] 19 [id number] Surgeries/Procedures Procedure Description Date Indications Data Source(s) CVR Leasing Specialist.Svc. STI / H 07/31/2020 12:00:00 AM EST - 07/31/2020 12:00:00 AM EST [facility] ([facility]) CVR Leasing Specialist.Svc. Other 07/31/2020 12:00:00 AM EST - 2020 12:00:00 AM EST [facility] ([facility]) CVR Leasing Specialist.Svc. Contraceptive 07/31/2020 12 :00:00 AM EST - 07/31/2020 12:00:00 AM EST [facility] ([facility]) CVR Med.Svc. Method Cessation 07/31/2020 12:00:00 AM EST - 07/31/2020 12:00:00 AM EST [facility] ([facility]) CVR Med.Svc. Method Initiation 12:00:00 AM EST - 07/31/2020 12:00:00 AM EST [facility] ([facility]) CVR Med.Svc. Extremities 07/31/2020 12:0 0:00 AM EST - 07/31/2020 12:00:00 AM EST [facility] ([facility]) CVR Med.Svc. Abdominal Palp. 07/31/2020 12:00:00 AM EST - 07/31/2020 12:00:00 AM EST [facility] ([facility]) CVR Med.Svc. Breast Exam 07/31/2020 12:0 0:00 AM EST - 07/31/2020 12:00:00 AM EST [facility] ([facility]) CVR Med.Svc. Heart/Lung Ausc. 07/31/2020 12:00:00 AM EST - 07/31/2020 12:00:00 AM EST [facility] ([facility]) CVR Med.Svc. Thyroid Palp. 07/31/2020 12 :00:00 AM EST - 07/31/2020 12:00:00 AM EST [facility] ([facility]) CVR Blood Pressure 07/31/2020 12:00:00 AM EST - 2020 12:00:00 AM EST [facility] ([facility]) HCS Without Test 07/31/2020 12:00:00 AM EST - 07/31/19 21 12:00:00 AM EST [facility] ([facility]) PREV VISIT, EST, AGE 18-39 07/31/2020 12 :00:00 AM EST - 07/31/2020 12:00:00 AM EST [facility] ([facility]) N.GONORRHOEAE, Rectal 07/31/2020 12:00:00 AM EST - 07/31/2020 12:00:00 AM EST [facility] ([facility]) CHYLMD TRACH, Rectal 07/31/2020 12:00:00 AM EST - 07/31/2020 12:00:00 AM EST [facility] ([facility]) N.GONORRHOEAE, Pharyngeal 07/31/2020 12: 00:00 AM EST - 07/31/2020 12:00:00 AM EST [facility] ([facility]) CHYLMD TRACH, Pharyngeal 07/31/2020 12:0 0:00 AM EST - 07/31/2020 12:00:00 AM EST [facility] ([facility]) N.GONORRHOEAE, URINE 07/31/2020 12:00:00 AM EST - 07/31/2020 12:00:00 AM EST [facility] ([facility]) CHYLMD TRACH, URINE 07/31/2020 12:00:00 AM EST - 07/31 12:00:00 AM EST [facility] ([facility]) URINE TEST 07/31/2020 12:00:00 AM EST - 07/31/2020 12:00:00 AM EST [facility] ([facility]) CVR Leasing Specialist.Svc. STI / H 01/24/2020 12:00:00 AM EDT - 01/24/2020 12:00:00 AM EDT [facility] ([facility]) CVR Leasing Specialist.Svc. Other 01/24/2020 12:00:00 AM EDT - 2019 12:00:00 AM EDT [facility] ([facility]) CVR Leasing Specialist.Svc. Contraceptive 01/24/2020 12 :00:00 AM EDT - 01/24/2020 12:00:00 AM EDT [facility] ([facility]) CVR Med.Svc. Vaginitis Rx 01/24/2020 12: 00:00 AM EDT - 01/24/2020 12:00:00 AM EDT [facility] ([facility]) HCS Without Test 01/24/2020 12:00:00 AM EDT - 01/24/20 20 12:00:00 AM EDT [facility] ([facility]) OFFICE VISIT, EST 01/24/2020 12:00:00 AM EDT - 020 12:00:00 AM EDT [facility] ([facility]) Results ID Date Data Source [id number] 07/31/2020 10:47:50 AM EST [facility] ([facility]) Name Value Range Interpretation Code Description Data Seema rce(s) Supporting Document(s) NegativeLot: [id number]: 02/18/2022 High Sensitivity Urine Test [facility] ([facility]) Procedure Social History Code Duration Value Status Description Data Source(s ) Smoking 07/31/2020 12:00:00 AM EST Never smoker completed Never s moker [facility] ([facility]) Vital Signs ID Date Data Source UNK Name Value Range Interpretation Code Description Data Source(s) Body mass index (BMI) [Ratio] 28.34 kg/m2 Overweight 28.34 kg/m2 [facility] ([facility]) Diastolic blood pressure 78 mm[Hg] 78 mm[Hg] [facility] ([facility]) Systolic blood pressure 122 mm[Hg] 122 mm[Hg] N [facility] ([facility]) Body weight 79.651 kg 79.651 kg [facility]) Body height 167.64 cm 167.64 cm [facility]) Patient Treatment Plan of Care Planned Activity Planned Date Details Description Data Source (s) Lluvia-BE 0.35 mg tablet 07/31/2020 12:00:00 AM EST [facility] ([facility]) Apri 0.15 mg-0.03 mg tablet 07/29/2020 12:00:00 AM EST [facility] ([facility]) Fluconazole 150 MG Oral Tablet 01/24/2020 12:00:00 AM EDT [facility] ([facility]) Metronidazole 500 MG Oral Tablet 01/24/2020 12:00:00 AM EDT [facility] ([facility]) Apri 0.15 mg-0.03 mg tablet 05/23/2019 12:00:00 AM EST [facility] ([facility])
[2020-08-08] MEDS ORDERED: NS 1,000 ML IV ONE (12:15)
[2020-08-08] MEDS ORDERED: ONDANSETRON 4MG/2ML VIAL IV ONE (12:15)
[2020-08-08] MEDS ORDERED: PANTOPRAZOLE 40MG VIAL (C9113 PER 1) IV ONE (12:15)
--- OUTSIDE RECORDS SUMMARY | 2020-08-08 12:23 | CCD ---
Author Author [facility] Organization [facility] Address Unknown Phone Unavailable Care Team Providers Care Scaler Packer Name Role Phone Julius Barry MD Unavailable Unavailable Julius Barry MD Unavailable Unavailable Julius Barry MD Unavailable Unavailable Julius Barry MD Unavailable Unavailable Julius Barry MD Unavailable Unavailable Juilus Barry MD Unavailable Unavailable Julius Barry MD Unavailable Unavailable Julius Barry MD Unavailable Unavailable Julius Barry MD Unavailable Unavailable Julius Barry MD Unavailable Unavailable Julius Barry MD Unavailable Unavailable Julius Barry MD Unavailable Unavailable Julius Barry MD Unavailable Unavailable Julius Barry MD Unavailable Unavailable Julius Barry MD Unavailable Unavailable Julius Barry MD Unavailable Unavailable Julius Barry MD Unavailable Unavailable Julius Barry MD Unavailable Unavailable Julius Barry MD Unavailable Unavailable Julius Barry MD Unavailable Unavailable Julius Barry MD Unavailable Unavailable Julius Barry MD Unavailable Unavailable Julius Barry MD Unavailable Unavailable Julius Barry MD Unavailable Unavailable Julius Barry MD Unavailable Unavailable Julius Barry MD Unavailable Unavailable Julius Barry MD Unavailable Unavailable Julius Barry MD Unavailable Unavailable Julius Barry MD Unavailable Unavailable Julius Barry MD Unavailable Unavailable Julius Barry MD Unavailable Unavailable Jhonny, Julius [...] Chanelle KENNEDY Unavailable Unavailable Jhonny, A Chanelle KENNDEY Unavailable Unavailable Jhonny, A Chanelle KENNEDY Unavailable [...] Unavailable Unavailable Christianson, Moira Unavailable Unavailable Green TRANSFORMER ASSEMBLY SUPERVISOR TRANSFORMER ASSEMBLY SUPERVISOR, Pilar Unavailable Unavailable Green TRANSFORMER ASSEMBLY SUPERVISOR TRANSFORMER ASSEMBLY SUPERVISOR, Pilar Unavailable Unavailable Green TRANSFORMER ASSEMBLY SUPERVISOR TRANSFORMER ASSEMBLY SUPERVISOR, Pilar Unavailable Unavailable Bovalino, Paula PA Unavailable [...] is protected by Article 27-F of the [facility] Public Health law. If you continue you may have access to information: Regarding HIV / AIDS; Provided by facilities licensed or operated by the [facility] Office of Mental Health; or Provided by the [facility] Office for People With Developmental Disabilities. If such information is present, then the following [facility] mandated warning applies: This information has been [...] law may result in a fine or custodial sentence or both. A general authorization for the release of medical or other information is NOT sufficient authorization for further disc losure. Family History Family Member Name Family Member Gender Family Member Status Date o f Status Description Data Source(s) Unknown Female Diagnosis 04/19/2015 12:00:00 AM EDT [facility] ([facility]) Unknown Female Diagnosis 04/19/2015 12:00:00 AM EDT [facility] ([facility]) Unknown Unknown Problem [facility] ([facility]) Unknown Unknown Problem [facility] ([facility]) Unknown Unknown Problem [facility] ([facility]) Encounters Encounter Providers Location Date Indications Data Source(s ) Outpatient Attender: Paula VELAZQUEZ 08/08/2020 10:20:4 9 AM EST [facility] ([facility]) OutpatientPREV VISIT, EST, AGE 18-39 Attender: Lucie Springer 07/31/2020 10:15:00 AM EST - 07/31/2020 10:15:00 AM ES T 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) (routine) w/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Human immunodeficiency virus [HIV] counselingEncntr screen for infections w sexl mode of transmissOther sex counselingEncounter for surveillance of contraceptive pillsEncounter for oth general cnsl and advice on contraceptionEncounter for test, result negative [facility] ([facility]) 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) (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) w/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 Human immunodeficiency virus [HIV] couns eling Encntr screen for infections w sexl mode of transmiss Other sex counseling Encounter for surveillance of contracept jodie pills Encounter for oth general cnsl and advic e on contraception Encounter for test, result neg ative Attender: Pilar Majano 12:50:00 PM EST - 07/29/2020 12:50:00 PM EST [facility] ([facility]) Attender: Moira Smart 07/24 09:21:00 AM EST - 07/24/2020 09:21:00 AM EST [facility] ([facility]) Attender: Chanelle Smart 1 06/26/2019 03:15:00 PM EST - 04/26/2020 03:15:00 PM EST [facility] ([facility]) OutpatientOFFICE VISIT, EST Attender: Moira Rivera [place] 01/24/2020 03:15:00 PM EDT - 01/24/2020 03:15:00 PM EDT Other specified noninflammatory disorders of vaginaPruritus vulvaeCandidiasis of vulva and vaginaAcute vaginitisHuman immunodeficiency virus [HIV] counselingEncounter for surveillance of contraceptive pillsEncounter for oth general cnsl and advice on contraception [facility] ([facility]) Other specified noninflammatory disorder s of vagina Pruritus vulvae Candidiasis of vulva and vagina Acute vaginitis Human immunodeficiency virus [HIV] couns eling Encounter for surveillance of contracept jodie pills [...] 28 Day Pack [facility] ([facility]) Isibloom 28 Day Pack 0.15-0.03 mg DESOGESTREL-ETHINYL ESTRAD IOL 07/29/2020 12:00:00 AM EST tablet 28 TAKE ONE TABLET BY MOUTH EVERY DAY TAKE ONE TABLET BY MOUTH EVERY DAY SOLD: 07/29/2020 [facility] Apri 0.15 mg-0.03 mg tablet {21 (desogestrel 0.15 MG / ethinyl estradiol 0.03 MG Oral Tablet) / 7 (inert ingredients 1 MG Oral Tablet) } Pack 07/29/2020 12:00:00 AM EST completed Apri 28 Day Pack [facility] ([facility]) 200 mg 02/11/2020 12:00:00 AM EDT tablet 6 TAKE ONE TABLET BY MOUTH THREE TIMES A DAY FOR 2 DAYS TAKE ONE TABLET BY MOUTH THREE TIMES A DAY FOR 2 DAYS SOLD: 02/12/2020 [facility] 100 mg 02/11/2020 12:00:00 AM EDT [...] PO weekly for 6 months [facility] ([facility]) 150 mg 01/24/2020 12:00:00 AM EDT tablet 15 TAKE ONE TABLET BY MOUTH EVERY 72 HOURS FOR 3 DOSES FOLLOWED BY 1 TABLET WEEKLY FOR 6 MONTHS TAKE ONE TABLET BY MOUTH EVERY 72 HOURS FOR 3 DOSES FOLLOWED BY 1 TABLET WEEKLY FOR 6 MONTHS SOLD: 01/25/2020 [facility] Metronidazole 500 MG Oral Tablet metronidazole 500 mg tablet metronidazole 500 mg tablet 01/24/2020 12:00:00 AM EDT active 1 tab po bid x 7d (#14) [facility] ([facility]) Metronidazole 500 MG Oral Tablet METRONIDAZOLE 01/24/2020 12:0 0:00 AM EDT tablet 14 TAKE ONE TABLET BY MOUTH TWICE A DAY FOR 7 DAYS TAKE ONE TABLET BY MOUTH TWICE A DAY FOR 7 DAYS SOLD: 01/25/2020 [facility] Isibloom 28 Day Pack 0.15-0.03 mg DESOGESTREL-ETHINYL ESTRAD IOL 05/23/2019 12:00:00 AM EST tablet 84 TAKE ONE TABLET BY MOUTH EVERY DAY TAKE ONE TABLET BY MOUTH EVERY DAY SOLD: 11/14/2019 [facility] Isibloom 28 Day Pack 0.15-0.03 mg DESOGESTREL-ETHINYL ESTRAD IOL 05/23/2019 12:00:00 AM EST tablet 84 TAKE ONE TABLET BY MOUTH EVERY DAY TAKE ONE TABLET BY MOUTH EVERY DAY SOLD: 02/08/2020 [facility] 0.15-0.03 mg 05/23/2019 12:00:00 AM EST tablet 84 TAKE ONE TABLET BY MOUTH EVERY DAY TAKE ONE TABLET BY MOUTH EVERY DAY SOLD: 08/20/2019 [facility] Isibloom 28 Day Pack 0.15-0.03 mg DESOGESTREL-ETHINYL ESTRAD IOL 05/23/2019 12:00:00 AM EST tablet 84 TAKE ONE TABLET BY MOUTH EVERY DAY TAKE ONE TABLET BY MOUTH EVERY DAY SOLD: 05/03/2020 [facility] Apri 0.15 mg-0.03 mg tablet {21 (desogestrel 0.15 MG / ethinyl estradiol 0.03 MG Oral Tablet) / 7 (inert ingredients 1 MG Oral Tablet) } Pack 05/23/2019 12:00:00 AM EST active Apri 28 Day Pack [facility] ([facility]) Insurance Providers Payer name Policy type / Coverage type Policy ID Covered libertarian ID Covered libertarian's relationship to prieto Policy Prieto Plan Information BCBS [facility] [id number] SP [id number] BCBS OF [facility] [id number] SP [id number] SELF PAY ONLY UNAVAILABLE SP UNAV AILABLE [employer] Blue Cross and Blue Shield - Platinum Blue Cross/B lue Shield [id number] Self [id number] [facility] [id number] SP [id number] [facility] [id number] SP [id number] [facility] Commercial [id number] Self [id number] EXCELLUS BCBS B [id number] S [id number] BCBS OF [place] 306/[id number] SP [id number] [facility] Commercial [id number] Self [id number] BC/BS Of [place] Platinum Commercial [id number] Self [id number] BCBS/[place] Commercial Self BC/BS Of [place] Platinum Medigap Part B Self [facility] Commercial Self BCBS [place] PPO [id number] [facility](MCAID) O [id number] S [id number] [facility] O [id number] S [id number] BC/BS OF [place] B [id number] S [place] [id number] BLUE CROSS BLUE SHIELD-CLINIC [id number] 19 [id number] SELF PAY UNAVAILABLE SP UNAVAILA BLE BLUE CROSS BLUE SHIELD-CLINIC [id number] 19 [id number] Surgeries/Procedures Procedure Description Date Indications Data Source(s) CVR Brush Cutter.Svc. STI / H 07/31/2020 12:00:00 AM EST - 07/31/2020 12:00:00 AM EST [facility] ([facility]) CVR Brush Cutter.Svc. Other 07/31/2020 12:00:00 AM EST - 2020 12:00:00 AM EST [facility] ([facility]) CVR Brush Cutter.Svc. Contraceptive 07/31/2020 12 :00:00 AM EST - 07/31/2020 12:00:00 AM EST [facility] ([facility]) CVR Med.Svc. Method Cessation 07/31/2020 12:00:00 AM EST - 07/31/2020 12:00:00 AM EST [facility] ([facility]) CVR Med.Svc. Method Initiation 12:00:00 AM EST - 07/31/2020 12:00:00 AM EST [facility] ([facility]) CVR Med.Svc. Extremities 07/31/2020 12:0 0:00 AM EST - 07/31/2020 12:00:00 AM EST [facility] ([facility]) CVR Med.Svc. Abdominal Palp. 07/31/2020 12:00:00 AM EST - 07/31/2020 12:00:00 AM EST [facility] ([facility]) CVR Med.Svc. Breast Exam 07/31/2020 12:0 0:00 AM EST - 07/31/2020 12:00:00 AM EST [facility] ([facility]) CVR Med.Svc. Heart/Lung Ausc. 07/31/2020 12:00:00 AM EST - 07/31/2020 12:00:00 AM EST [facility] ([facility]) CVR Med.Svc. Thyroid Palp. 07/31/2020 12 :00:00 AM EST - 07/31/2020 12:00:00 AM EST [facility] ([facility]) CVR Blood Pressure 07/31/2020 12:00:00 AM EST - 2020 12:00:00 AM EST [facility] ([facility]) HCS Without Test 07/31/2020 12:00:00 AM EST - 07/31/19 21 12:00:00 AM EST [facility] ([facility]) PREV VISIT, EST, AGE 18-39 07/31/2020 12 :00:00 AM EST - 07/31/2020 12:00:00 AM EST [facility] ([facility]) N.GONORRHOEAE, Rectal 07/31/2020 12:00:00 AM EST - 07/31/2020 12:00:00 AM EST [facility] ([facility]) CHYLMD TRACH, Rectal 07/31/2020 12:00:00 AM EST - 07/31/2020 12:00:00 AM EST [facility] ([facility] N.GONORRHOEAE, Pharyngeal 07/31/2020 12: 00:00 AM EST - 07/31/2020 12:00:00 AM EST [facility] ([facility]) CHYLMD TRACH, Pharyngeal 07/31/2020 12:0 0:00 AM EST - 07/31/2020 12:00:00 AM EST [facility] ([facility]) N.GONORRHOEAE, URINE 07/31/2020 12:00:00 AM EST - 07/31/2020 12:00:00 AM EST [facility] ([facility]) CHYLMD TRACH, URINE 07/31/2020 12:00:00 AM EST - 07/31 12:00:00 AM EST [facility] ([facility]) URINE TEST 07/31/2020 12:00:00 AM EST - 07/31/2020 12:00:00 AM EST [facility] ([facility]) CVR Brush Cutter.Svc. STI / H 01/24/2020 12:00:00 AM EDT - 01/24/2020 12:00:00 AM EDT [facility] ([facility]) CVR Brush Cutter.Svc. Other 01/24/2020 12:00:00 AM EDT - 2019 12:00:00 AM EDT [facility] ([facility]) CVR Brush Cutter.Svc. Contraceptive 01/24/2020 12 :00:00 AM EDT - 01/24/2020 12:00:00 AM EDT [facility] ([facility]) CVR Med.Svc. Vaginitis Rx 01/24/2020 12: 00:00 AM EDT - 01/24/2020 12:00:00 AM EDT [facility] ([facility]) HCS Without Test 01/24/2020 12:00:00 AM EDT - 01/24/20 20 12:00:00 AM EDT [facility] ([facility]) OFFICE VISIT, EST 01/24/2020 12:00:00 AM EDT - 020 12:00:00 AM EDT [facility] ([facility]) Results ID Date Data Source [id number] 07/31/2020 10:47:50 AM EST [facility] ([facility]) Name Value Range Interpretation Code Description Data Seema rce(s) Supporting Document(s) NegativeLot: [id number]: 02/18/2022 High Sensitivity Urine Test [facility] ([facility]) Procedure Social History Code Duration Value Status Description Data Source(s ) Smoking 07/31/2020 12:00:00 AM EST Never smoker completed Never s moker [facility] ([facility]) Vital Signs ID Date Data Source UNK Name Value Range Interpretation Code Description Data Source(s) Body mass index (BMI) [Ratio] 28.34 kg/m2 Overweight 28.34 kg/m2 [facility] ([facility]) Diastolic blood pressure 78 mm[Hg] 78 mm[Hg] [facility] ([facility]) Systolic blood pressure 122 mm[Hg] 122 mm[Hg] N [facility] ([facility]) Body weight 79.651 kg 79.651 kg [facility] Body height 167.64 cm 167.64 cm [facility]) Patient Treatment Plan of Care Planned Activity Planned Date Details Description Data Source (s) Lluvia-BE 0.35 mg tablet 07/31/2020 12:00:00 AM EST [facility] ([facility]) Apri 0.15 mg-0.03 mg tablet 07/29/2020 12:00:00 AM EST [facility] ([facility]) Fluconazole 150 MG Oral Tablet 01/24/2020 12:00:00 AM EDT [facility] ([facility]) Metronidazole 500 MG Oral Tablet 01/24/2020 12:00:00 AM EDT [facility] ([facility]) Apri 0.15 mg-0.03 mg tablet 05/23/2019 12:00:00 AM EST [facility] ([facility])
[2020-08-08 12:30] LABS: BASO # 0.1 10^3/uL (0.0-0.2); BASO % 0.4 % (0.0-1.0); EOS % 0.1 % (0.0-3.0); HEMATOCRIT 42.5 % (36.0-47.0); LYMPH # 1.3 10^3/uL (1.5-5.0); LYMPH % 8.2 % (24.0-44.0); MEAN CORPUSCULAR HEMOGLOBIN 30.8 pg (27.0-33.0); MEAN CORPUSCULAR HGB CONC 32.9 g/dl (32.0-36.5); MEAN CORPUSCULAR VOLUME 93.4 fl (80.0-96.0); MONO # 0.7 10^3/uL (0.0-0.8); NEUTROPHILS # 14.3 10^3/uL (1.5-8.5); NEUTROPHILS % 86.9 % (36.0-66.0); PLATELET COUNT, AUTOMATED 323 10^3/uL (150-450); RED BLOOD COUNT 4.55 10^6/uL (4.00-5.40); WHITE BLOOD COUNT 16.4 10^3/uL (4.0-10.0)
[2020-08-08 12:49] LABS: INR 0.93; PROTHROMBIN TIME 12.7 SECONDS (12.5-14.3)
[2020-08-08 12:50] LABS: PARTIAL THROMBOPLASTIN TIME 25.9 SECONDS (24.2-38.5)
[2020-08-08 13:00] LABS: ALBUMIN 4.1 GM/DL (3.2-5.2); ALT/SGPT 21 U/L (12-78); AMYLASE 79 U/L (25-115); BILIRUBIN,DIRECT 0.1 MG/DL (0.0-0.2); BILIRUBIN,TOTAL 0.4 MG/DL (0.2-1.0); CK-MB VALUE MASS < 1.0 NG/ML (<3.6); CPK CREATINE PHOSPHOKINASE 42 U/L (26-192); LIPASE 184 U/L (73-393); MB/CK RELATIVE INDEX 2.38 (< OR =4); TOTAL PROTEIN 7.7 GM/DL (6.4-8.2); TROPONIN I < 0.02 NG/ML (< 0.10)
--- NOTE | 2020-08-08 13:54 | REP ---
INDICATION: Abdominal Pain. COMPARISON: None. TECHNIQUE: Acute abdominal series: Four views including upright chest radiograph. FINDINGS: Upright chest radiograph is unremarkable. There is no evidence of infiltrate or free subdiaphragmatic air. Heart size is normal. Pulmonary vasculature is not increased. Pleural angles are sharp. Supine and erect views of the abdomen demonstrate a normal bowel gas pattern. The psoas margins and the flank stripes are intact. There is no evidence of mass, organomegaly, or pathologic calcification. Umbilical jewelry is noted incidentally. IMPRESSION: Negative acute abdominal series. <Electronically signed by Douglas Cordova > 08/08/20 [id number]
[2020-08-08] MEDS ORDERED: OMEP40CA97 PO (14:27)
[2020-08-08] MEDS ORDERED: CARA1TAB6 PO (14:27)
[2020-08-08 14:37] VITALS: BP 131/74
--- NOTE | 2020-08-09 08:15 | ECGEPIP ---
[facility] - ED Test Date: 2020-08-08 Pat Name: DEANNA DONOVAN Department: Room: - Gender: Female Control Room Agent: JOSE E : 1990 Requested By: GUANACO Zelaya PA-C Order Number: [id number] Reading MD: Meli Butler Measurements Intervals Leland Rate: 72 P: -8 NJ: 106 QRS: 47 QRSD: 82 T: -4 QT: 406 QTc: 444 Interpretive Statements Sinus rhythm with short [place] NSTTW abnormalities No prior Electronically Signed on 08-09-2020 8:15:07 EST by Meli Butler
== END 2020-08-08 14:48 | disposition home or self-care (01) ==
LOC: M ED 11:49
DX: K29.70 Gastritis, unspecified, without bleeding (principal); D72.829 Elevated white blood cell count, unspecified
CPT/HCPCS: 74021; 80047; 80076; 82150; 82550; 82553; 83690; 84702; 85025; 85610; 85730; 93005; 96361; 96374; 99284; C9113; J2405

== ENCOUNTER 2020-08-19 16:07 | Emergency (ER) | payer BC ==
[~2020-08-19] VITALS: Ht 167.6 cm; Wt 78.2 kg
[~2020-08-19 16:07] MED LIST changes: +CARA1TAB6 PO; +IBUP200C25 PO; +ISIB1TAB; +OMEP40CA97 PO
[2020-08-19] MEDS ORDERED: DEBL1TAB (16:29)
[2020-08-19 17:42] LABS: BASO # 0.1 10^3/uL (0.0-0.2); BASO % 0.6 % (0.0-1.0); EOS % 0.2 % (0.0-3.0); HEMATOCRIT 40.1 % (36.0-47.0); HEMOGLOBIN 13.3 g/dl (12.0-15.5); LYMPH # 1.3 10^3/uL (1.5-5.0); LYMPH % 9.1 % (24.0-44.0); MEAN CORPUSCULAR HEMOGLOBIN 30.7 pg (27.0-33.0); MEAN CORPUSCULAR HGB CONC 33.2 g/dl (32.0-36.5); MEAN CORPUSCULAR VOLUME 92.6 fl (80.0-96.0); MONO # 0.6 10^3/uL (0.0-0.8); MONO % 3.9 % (2.0-8.0); NEUTROPHILS # 12.5 10^3/uL (1.5-8.5); NEUTROPHILS % 85.8 % (36.0-66.0); PLATELET COUNT, AUTOMATED 414 10^3/uL (150-450); RED BLOOD COUNT 4.33 10^6/uL (4.00-5.40); WHITE BLOOD COUNT 14.5 10^3/uL (4.0-10.0)
[2020-08-19] MEDS ORDERED: NS 1,000 ML IV ONE (17:55)
[2020-08-19] MEDS ORDERED: MORPHINE 4 MG/ML 1ML VIAL/SYRINGE (J2270) IV ONE (17:55)
[2020-08-19] MEDS ORDERED: ONDANSETRON 4MG/2ML VIAL IV ONE (17:55)
[2020-08-19 18:11] LABS: ALBUMIN 3.8 GM/DL (3.2-5.2); ALT/SGPT 15 U/L (12-78); BILIRUBIN,DIRECT 0.1 MG/DL (0.0-0.2); BILIRUBIN,TOTAL 0.3 MG/DL (0.2-1.0); BLOOD UREA NITROGEN 8 MG/DL (7-18); CALCIUM LEVEL 9.2 MG/DL (8.5-10.1); CARBON DIOXIDE LEVEL 26 MEQ/L (21-32); CHLORIDE LEVEL 105 MEQ/L (98-107); CREATININE FOR GFR 0.88 MG/DL (0.55-1.30); GLOMERULAR FILTRATION RATE > 60.0 (>60); GLUCOSE, FASTING 80 MG/DL (70-100); LIPASE 139 U/L (73-393); POTASSIUM SERUM 3.9 MEQ/L (3.5-5.1); SODIUM LEVEL 139 MEQ/L (136-145); TOTAL PROTEIN 7.4 GM/DL (6.4-8.2)
[2020-08-19 18:24] LABS: HCG, SERUM QUALITATIVE NEGATIVE (NEGATIVE)
--- NOTE | 2020-08-19 18:55 | REP ---
INDICATION: severe epigastric pain into back, ro perf or free air COMPARISON: None. TECHNIQUE: Upright view of the chest with supine and upright views of the abdomen and pelvis. FINDINGS: Frontal upright view of the chest demonstrates no acute cardiopulmonary process or free air below the diaphragm to suspect pneumoperitoneum. Supine and upright views of the abdomen and pelvis demonstrate nonspecific bowel gas pattern without obstruction or perforation. No organomegaly. No abnormal calcifications. Skeletal structures normal for age. IMPRESSION: Nonspecific bowel gas pattern. <Electronically signed by Payam Garcia > 08/19/20 [id number]
[2020-08-19] MEDS ORDERED: ZOFR4TAB16 PO (19:33)
--- NOTE | 2020-08-19 20:57 | REPVR ---
PROCEDURE INFORMATION: Exam: US Abdomen, Limited; Right Upper Quadrant Exam date and time: 08/19/2020 8:44 PM Age: 30 years old Clinical indication: Abdominal pain; Epigastric; Additional info: Epigastric pain into back, n/v TECHNIQUE: Imaging protocol: US abdomen. Real time ultrasound with image documentation. Limited exam focused on the right upper quadrant. COMPARISON: No relevant prior studies available. FINDINGS: Liver: Normal. No masses. Gallbladder: Normal. No gallstones. There is no gallbladder wall thickening. Common bile duct: The common bile duct measures 4.2 mm. No mass or choledocholithiasis. Pancreas: Visualized pancreas is unremarkable. Right kidney: Right kidney measures 11.9 x 4.7 x 5 cm. IMPRESSION: Unremarkable exam. Electronically signed by: Eriberto Moy On 08/19/2020 20:58:31 PM
[2020-08-19] MEDS ORDERED: DICY10CA13 PO (21:27)
[2020-08-19] MEDS ORDERED: DICYCLOMINE 10 MG CAP PO ONE (21:30)
[2020-08-19 22:07] VITALS: BP 139/85
== END 2020-08-19 22:16 | disposition home or self-care (01) ==
LOC: M ED 16:07
DX: K29.70 Gastritis, unspecified, without bleeding (principal)
CPT/HCPCS: 74021; 76705; 80048; 80076; 81001; 83690; 84703; 85025; 96361; 96374; 96375; 99284; J2270; J2405

== ENCOUNTER → 2021-05-26 | Outpatient (CLI) | payer BC ==
[~2021-05-26] MED LIST changes: +DEBL1TAB; +DICY10CA13 PO; +OMEP40CA4 PO; -OMEP40CA97 PO; +PHEN37.58 PO; +ZOFR4TAB16 PO
== END ==
LOC: M LABSMTC 09:32
PROVIDERS: ATTEND Anesthesiology
DX: Z01.818 Encounter for other preprocedural examination (principal); Z11.52 Encounter for screening for COVID-19

== ENCOUNTER 2021-05-30 06:03 | Day surgery (SDC) | payer BC ==
[~2021-05-30] VITALS: Ht 167.6 cm; Wt 73.9 kg
[~2021-05-30 06:03] MED LIST changes: +LIDOCAINE 1% MDV 20ML VIAL SQ PRN; +LR 1,000 ML IV ONE
--- OUTSIDE RECORDS SUMMARY | 2021-05-30 06:11 | CCD ---
Author Author [facility] Organization [facility] Address Unknown Phone Unavailable Care Team Providers Care Score Caller Name Role Phone Kerr, Josue Unavailable PROBLEMS No Information ALLERGIES No Known Allergies ENCOUNTERS from 1990 to 2021-03-04 Encounter Location Date Provider Diagnosis [facility] [address] [place] [address] [place] [address] 14 Feb, 2021 Josue Kerr IMMUNIZATIONS No Information SOCIAL HISTORY Tobacco Use: Social History Observation Description Date Details (start date - stop date) Never Smoker Sex Assigned At : Social History Observation Description Sex Assigned At Unknown Tobacco Use: Question Answer Notes Are you a: never smoker REASON FOR REFERRAL No Information VITAL SIGNS No information MEDICATIONS Medication SIG (Take, Route, Frequency, Duration) Notes Start Da te End Date Status Nexplanon 68 MG as directed Subcutaneous Active PROCEDURES No Information RESULTS No Results REASON FOR VISIT 05/30/21 SURG AUTH Goals Section No Information Health Concerns No Information MEDICAL EQUIPMENT No Information MENTAL STATUS No Information FUNCTIONAL STATUS No Information ASSESSMENTS No Information PLAN OF TREATMENT Next Appt Details Provider Name:Josue Kerr, 02:20:00 PM, [address] [place] [address] , [place], [address], Provider Name:Josue Kerr, 09:00:00 AM, [address] [place] [address] , [place], [address], Insurance Providers Payer Name Payer Address Payer Phone Insured Name Patient Relati onship to Insured Coverage Start Date Coverage End Date BCBS AMRITA JONES PPO [id number] [facility] [id number] DEANNA DONOVAN self
--- OUTSIDE RECORDS SUMMARY | 2021-05-30 06:11 | CCD ---
Author Author [facility] Organization [facility] Address Unknown Phone Unavailable Care Team Providers Care Coremaker Floor Name Role Phone Josue Kerr Unavailable PROBLEMS No Information ALLERGIES No Known Allergies ENCOUNTERS from 1990 to 2021-05-23 Encounter Location Date Provider Diagnosis [facility] [address] [place] [address] [place] [address] Apr, Josue Kerr Consultation for fem isaak sterilization Z30.09 IMMUNIZATIONS No Information SOCIAL HISTORY Tobacco Use: Social History Observation Description Date Details (start date - stop date) Never Smoker Sex Assigned At : Social History Observation Description Sex Assigned At Unknown Tobacco Use: Question Answer Notes Are you a: never smoker REASON FOR REFERRAL No Information VITAL SIGNS Weight 162 lbs Apr, Weight-kg 73.48 kg Apr, Height 66 in Apr, BMI 26.14 kg/m2 Apr, Blood pressure systolic 114 mm Hg Apr, Blood pressure diastolic 80 mm Hg Apr, MEDICATIONS Medication SIG (Take, Route, Frequency, Duration) Notes Start Da te End Date Status Phentermine HCl 37.5 MG 1 tablet Orally Once a day Active Nexplanon 68 MG as directed Subcutaneous Active PROCEDURES No Information RESULTS No Results REASON FOR VISIT PRE OP SURG 05/30/21 MEDICAL (GENERAL) HISTORY Type Description Date Surgical History Tonsils removed Surgical History wisdom teeth removed Goals Section No Information Health Concerns No Information MEDICAL EQUIPMENT No Information MENTAL STATUS No Information FUNCTIONAL STATUS No Information ASSESSMENTS Encounter Date Diagnosis Assessment Notes Treatment Notes Treatm ent Clinical Notes Apr, Consultation for female sterilization (ICD-10 - Z30.09) She was counseled on the risks, benefits, alternatives, and indications of permanent sterilization via laparoscopic bilateral salpingectomy and Nexplanon removal. She understands the risk of regret and remains insistent on proceeding with permanent sterilization. She was offered long acting reversible contraceptives and has declined. She understands the risk of permanent sterilization failure (less than 1%) and her elevated risk of ectopic should she become after this procedure. The patient understands the surgical risks to include: damage to surrounding organs (necessitating additional surgical procedures), hemorrhage (possibly requiring a blood transfusion), infection (necessitating antibiotics and possible additional hospitalization), and poor surgical wound healing and need for additional surgical procedures. She also understands that surgery and anesthesia carry the risk of heart attack, stroke, and/or . PLAN OF TREATMENT Treatment Notes Assessment Notes Clinical Notes Consultation for female sterilization Declan rogers was counseled on the risks, benefits, alternatives, and indications of permanent sterilization via laparoscopic bilateral salpingectomy and Nexplanon removal. She understands the risk of regret and remains insistent on proceeding with permanent sterilization. She was offered long acting reversible contraceptives and has declined. She understands the risk of permanent sterilization failure (less than 1%) and her elevated risk of ectopic should she become after this procedure. The patient understands the surgical risks to include: damage to surrounding organs (necessitating additional surgical procedures), hemorrhage (possibly requiring a blood transfusion), infection (necessitating antibiotics and possible additional hospitalization), and poor surgical wound healing and n eed for additional surgical procedures. She also understands that surgery and anesthesia carry the risk of heart attack, stroke, and/or . Next Appt Details 05/30/21. Reason: Provider Name:Josue Kerr, 07:30:00 AM, [address] [place] [address], , [place], [address], Provider Name:Josue Kerr, 11:20:00 AM, [address] [place] [address], , [place], [address], Insurance Providers Payer Name Payer Address Payer Phone Insured Name Patient Relati onship to Insured Coverage Start Date Coverage End Date DAVID JONES PPO [id number] [facility] [place] [facility] [place] [id number] DEANNA DONOVAN self
--- OUTSIDE RECORDS SUMMARY | 2021-05-30 06:11 | CCD ---
Author Author [facility] Organization [facility] Address Unknown Phone Unavailable Care Team Providers Care Contour Grinder Name Role Phone Bovalino, Paula PA Unavailable Unavailable Bovalino, Paula PA Unavailable Unavailable Bovalino, Paula PA Unavailable Unavailable Bovalino, Paula PA Unavailable Unavailable Bovalino, Paula PA Unavailable Unavailable Bovalino, Paula PA Unavailable Unavailable Bovalino, Paula PA Unavailable Unavailable Bovalino, Paula PA Unavailable Unavailable Bovalino, Paula PA Unavailable Unavailable Bovalino, Paula PA Unavailable Unavailable Bovalino, Paula PA Unavailable Unavailable Christianson, Moira Unavailable Unavailable Christianson, Moira Unavailable Unavailable Christianson, Moira Unavailable Unavailable Christianson, Moira Unavailable Unavailable Christianson, Moira Unavailable Unavailable Christianson, Moira Unavailable Unavailable Green JOY OPERATOR JOY OPERATOR, Pilar Unavailable Unavailable Green JOY OPERATOR JOY OPERATOR, Pilar Unavailable Unavailable Green JOY OPERATOR JOY OPERATOR, Pilar Unavailable Unavailable Green JOY OPERATOR JOY OPERATOR, Pilar Unavailable Unavailable Green JOY OPERATOR JOY OPERATOR, Pilar Unavailable Unavailable Julius Barry MD Unavailable Unavailable Julius Barry MD Unavailable Unavailable Julius Barry MD Unavailable Unavailable Julius Barry MD Unavailable Unavailable Julius Barry MD Unavailable Unavailable Jhonny, Julius Roca MD Unavailable Unavailable Jhonny, Julius Roca MD Unavailable Unavailable Jhonny, Julius Roca MD Unavailable Unavailable Jhonny, Julius Roca MD Unavailable Unavailable Johnny, A Chanelle KENNEDY Unavailable Unavailable Jhonny, Julius [...] Jhonny, Julius Roca MD Unavailable Unavailable Jhonny, Juluis Roca MD Unavailable Unavailable Jhonny, Julius Roca [...] Roca MD Unavailable Unavailable Jhonny, A Chanelle MD Unavailable Unavailable Jhonny, A Chanelle MD Unavailable Unavailable Jhonny, A Chanelle MD Unavailable Unavailable Jhonny, A Chanelle MD Unavailable Unavailable Jhonny, A Chanelle MD Unavailable Unavailable Jhonny, A Chanelle MD Unavailable Unavailable Jhonny, A Chanelle MD Unavailable Unavailable Jhonny, A Chanelle MD Unavailable Unavailable Jhonny, A Chanelle MD Unavailable Unavailable Jhonny, A Chanelle MD Unavailable Unavailable Jhonny, A Chanelle MD Unavailable Unavailable Jhonny, A Chanelle MD Unavailable Unavailable Jhonny, A Chanelle MD Unavailable Unavailable Jhonny, A Chanelle MD Unavailable Unavailable Jhonny, A Chanelle MD Unavailable Unavailable Jhonny, A Chanelle MD Unavailable Unavailable Dwello PA PA, Lucie Unavailable [...] is protected by Article 27-F of the [facility] Public Health law. If you continue you may have access to information: Regarding HIV / AIDS; Provided by facilities licensed or operated by the [facility] Office of Mental Health; or Provided by the [facility] Office for People With Developmental Disabilities. If such information is present, then the following [facility] mandated warning applies: This information has [...] law may result in a fine or mcc sentence or both. A general authorization for the release of medical or other information is NOT sufficient authorization for further disc losure. Family History Family Member Name Family Member Gender Family Member Status Date o f Status Description Data Source(s) Unknown Female Diagnosis 04/19/2015 12:00:00 AM EDT [facility] ([facility]) Unknown Female Diagnosis 04/19/2015 12:00:00 AM EDT [facility] ([facility]) Unknown Unknown Problem [facility] ([facility]) Unknown Unknown Problem MED[facility] ([facility]) Unknown Unknown Problem [facility] ([facility]) Encounters Encounter Providers Location Date Indications Data Source(s ) [place] [address] [facility] [address] 05/20/2021 12:00:00 AM EST eCW1 ([facility]) [place] [address] [facility] [place] [address] 05/19/2021 12:00:00 AM EST [facility]CW1 ([facility]) [place] [address] [facility] [place] [address] 03/04/2021 12:00:00 AM EDT eCW1 ([facility]) [place] [address] [facility] [place] [address] 02/11/2021 12:00:00 AM EDT eCW1 ([facility]) Attender: Chanelle Smart 0 01/23/2021 04:24:00 PM EDT - 01/23/2021 04:24:00 PM EDT [facility] ([facility]) Attender: Chanelle Smart 0 01/03/2021 01:44:00 PM EDT - 01/03/2021 01:44:00 PM EDT [facility] ([facility]) Attender: Chanelle Smart 0 12/03/2020 03:14:00 PM EDT - 12/03/2020 03:14:00 PM EDT [facility] ([facility]) OutpatientOFFICE VISIT, EST Attender: Pilar Arreola JOY OPERATOR JOY OPERATOR GAVI Springer 11/25/2020 09:15:00 AM EDT - 11/25/2020 09:15:00 AM EDT Human immunodeficiency virus [HIV] counselingPruritus vulvaeOther specified noninflammatory disorders of vaginaCandidiasis of vulva and vaginaOther sex counselingEncounter for oth general cnsl and advice on contraception [facility] ([facility]) Human immunodeficiency virus [HIV] couns eling Pruritus vulvae Other specified noninflammatory disorder s of vagina Candidiasis of vulva and vagina Other sex counseling Encounter for oth general cnsl and advic e on contraception Attender: Chanelle Smart 0 11/19/2020 03:27:00 PM EDT - 11/19/2020 03:27:00 PM EDT [facility] ([facility]) OFFICE VISIT, ESTOutpatient Attender: Lucie fenton 10/21/2020 01:30:00 PM EDT - 10/21/2020 01:30:00 PM EDT Encounter for surveillance of contraceptive pillsEncounter for oth general cnsl and advice on contraceptionOther sex counseling [facility] ([facility]) Encounter for surveillance of contracept jodie pills Encounter for oth general cnsl and advic e on contraception Other sex counseling Attender: Lucie Springer 09:20:00 AM EST - 08/13/2020 09:20:00 AM EST [facility] ([facility]) Attender: Lucie Springer 09:38:00 AM EST - 08/12/2020 09:38:00 AM EST [facility] ([facility]) Outpatient Attender: Paula VELAZQUEZ 10:20:49 AM EST - 08/08/2020 11:03:15 AM EST [facility] ([facility]) PREV VISIT, EST, AGE 18-39Outpatient Attender: Lucie Springer 07/31/2020 10:15:00 AM EST - 07/31/2020 10:15:00 AM ES T 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) (routine) w/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Human immunodeficiency virus [HIV] counselingEncntr screen for infections w sexl mode of transmissOther sex counselingEncounter for surveillance of contraceptive pillsEncounter for oth general cnsl and advice on contraceptionEncounter for test, result negative [facility] ([facility]) 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) (routine) w/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 Human immunodeficiency virus [HIV] couns eling Encntr screen for infections w sexl mode of transmiss Other sex counseling Encounter for surveillance of contracept jodie pills Encounter for oth general cnsl and advic e on contraception Encounter for test, result neg ative Attender: Pilar Majano 12:50:00 PM EST - 07/29/2020 12:50:00 PM EST [facility] ([facility]) Attender: Moira Smart 07/24 09:21:00 AM EST - 07/24/2020 09:21:00 AM EST [facility] ([facility]) Attender: Chanelle Smart 1 06/26/2019 03:15:00 PM EST - 04/26/2020 03:15:00 PM EST [facility] ([facility]) Immunizations Vaccine Date Status Description Data Source(s) COVID-19 VACCINE Francis 09/04/2020 12:00:00 AM EDT completed NYSIIS Vaccine Series Complete: YESThis Data wa s Submitted to [facility] Via [employer]. Medications Medication Brand Name Start Date Product Form Dose Route Admi nistrative Instructions Pharmacy Instructions Status Indications Reaction Description Data Source(s) 37.5 mg 05/21/2021 12:00:00 AM EST tablet 30 TAKE ONE-HALF TABLET BY MOUTH TWICE A DAY TAKE ONE-HALF TABLET BY MOUTH TWICE A DAY SOLD: 05/26/2021 [facility] 37.5 mg 04/12/2021 12:00:00 AM EDT tablet 30 TAKE ONE-HALF TABLET BY MOUTH TWICE A DAY MAXIMUM DAILY DOSE = 1 TABLET TAKE ONE-HALF TABLET BY MOUTH TWICE A DAY MAXIMUM DAILY DOSE = 1 TABLET SOLD: 04/13/2021 [facility] 37.5 mg 03/13/2021 12:00:00 AM EDT tablet 30 TAKE ONE-HALF TABLET BY MOUTH TWICE A DAY MAXIMUM DAILY DOSE = ONE TABLET TAKE ONE-HALF TABLET BY MOUTH TWICE A DAY MAXIMUM DAILY DOSE = ONE TABLET SOLD: 03/14/2021 [facility] Fluconazole 150 MG Oral Tablet fluconazole 150 mg tabl et fluconazole 150 mg tablet 11/25/2020 12:00:00 AM EDT completed 1 po x 1, then 1 po in 2-3 days [facility] ([facility]) 150 mg 11/25/2020 12:00:00 AM EDT tablet 2 TAKE ONE TABLET BY MOUTH ONCE THEN TAKE ONE TABLET IN 2-3 DAYS TAKE ONE TABLET BY MOUTH ONCE THEN TAKE ONE TABLET IN 2-3 DAYS SOLD: 11/26/2020 [facility] 800-160 mg 11/06/2020 12:00:00 AM EDT tablet 10 TAKE ONE TABLET BY MOUTH TWICE A DAY TAKE ONE TABLET BY MOUTH TWICE A DAY SOLD: 11/07/2020 [facility] Alprazolam 0.5 MG Oral Tablet ALPRAZOLAM 10/09/2020 12:00:00 AM EDT ta blet 1 TAKE ONE TABLET BY MOUTH DIRECTED NEEDED ANXIETY 1 HOUR BEDORE PROCEDURE MAXIMUM DAILY DOSE = 1 TAKE ONE TABLET BY MOUTH DIRECTED NEEDED ANXIETY 1 HOUR BEDORE PROCEDURE MAXIMUM DAILY DOSE = 1 SOLD: 10/14/2020 [facility] Cephalexin 500 MG Oral Capsule CEPHALEXIN 10/09/2020 12:00:00 AM EDT capsule 3 TAKE ONE CAPSULE BY MOUTH THREE TIMES A DAY - TAKE FIRST CAPSULE 1 HOUR PRIOR TO PROCEDURE TAKE ONE CAPSULE BY MOUTH THREE TIMES A DAY - TAKE FIRST CAPSULE 1 HOUR PRIOR TO PROCEDURE SOLD: 10/14/2020 [facility] Acetaminophen 325 MG / Hydrocodone Bitartrate 5 MG Ora l Tablet 5-325 mg HYDROCODONE/ACETAMINOPHEN 10/09/2020 12:00:00 AM EDT tablet 20 TAKE 1-2 TABLETS BY MOUTH EVERY 6 HOURS DIRECTED - TAKE 1ST PILL 1 HOUR PRIOR TO PROCEDURE MAXIMUM DAILY DOSE = 8 TAKE 1-2 TABLETS BY MOUTH EVERY 6 HOURS DIRECTED - TAKE 1ST PILL 1 HOUR PRIOR TO PROCEDURE MAXIMUM DAILY DOSE = 8 SOLD: 10/14/2020 [facility] 10 mg 08/20/2020 12:00:00 AM EST capsule 100 TAKE ONE CAPSULE BY MOUTH EVERY 6 HOURS NEEDED FOR IBS TAKE ONE CAPSULE BY MOUTH EVERY 6 HOURS NEEDED FOR IBS SOLD: 08/20/2020 [facility] 4 mg 08/20/2020 12:00:00 AM EST tablet 5 TAKE ONE TABLET BY MOUTH EVERY 6 TO 8 HOURS NEEDED FOR NAUSEA AND VOMITING TAKE ONE TABLET BY MOUTH EVERY 6 TO 8 HOURS NEEDED FOR NAUSEA AND VOMITING SOLD: 08/20/2020 [facility] 1 gram 08/08/2020 12:00:00 AM EST tablet 100 TAKE ONE TABLET BY MOUTH FOUR TIMES A DAY BEFORE MEALS AND AT BEDTIME, MAY DISSOLVE IN 5-10ML OF WATER TO EASE SWALLOWING TAKE ONE TABLET BY MOUTH FOUR TIMES A DA Y BEFORE MEALS AND AT BEDTIME, MAY DISSOLVE IN 5-10ML OF WATER TO EASE SWALLOWING SOLD: 08/08/2020 [facility] 40 mg 08/08/2020 12:00:00 AM EST capsule,delayed release (DR/EC) 30 TAKE ONE CAPSULE BY MOUTH EVERY DAY TAKE ONE CAPSULE BY MOUTH EVERY DAY SOLD: 08/08/2020 [facility] 0.35 mg 07/31/2020 12:00:00 AM EST tablet 84 TAKE ONE TABLET BY MOUTH EVERY DAY TAKE ONE TABLET BY MOUTH EVERY DAY SOLD: 08/08/2020 [facility] 0.35 mg 07/31/2020 12:00:00 AM EST tablet 84 TAKE ONE TABLET BY MOUTH EVERY DAY TAKE ONE TABLET BY MOUTH EVERY DAY SOLD: 10/29/2020 [facility] Lluvia-BE 0.35 mg tablet {28 (norethindrone 0.35 MG Oral Table t) } Pack 07/31/2020 12:00:00 AM EST 1.00 {tablet} ORAL completed Lluvia-BE 28 Day Pack [facility] ([facility]) Isibloom 28 Day Pack 0.15-0.03 mg DESOGESTREL-ETHINYL ESTRAD IOL 07/29/2020 12:00:00 AM EST tablet 28 TAKE ONE TABLET BY MOUTH EVERY DAY TAKE ONE TABLET BY MOUTH EVERY DAY SOLD: 07/29/2020 [facility] 0.15 mg-0.03 mg tablet {21 (desogestrel 0.15 MG / ethinyl estradiol 0.03 MG Oral Tablet) / 7 (inert ingredients 1 MG Oral Tablet) } Pack 07/29/2020 12:00:00 AM EST completed Apri 28 Day Pack [facility] ([facility]) Fluconazole 150 MG Oral Tablet fluconazole 150 mg tabl et fluconazole 150 mg tablet 01/24/2020 12:00:00 AM EDT active 1 po every 72 hours for 3 doses followed by 1 PO weekly for 6 months [facility] ([facility]) Apri 0.15 mg-0.03 mg tablet {21 (desogestrel 0.15 MG / ethinyl estradiol 0.03 MG Oral Tablet) / 7 (inert ingredients 1 MG Oral Tablet) } Pack 05/23/2019 12:00:00 AM EST active Apri 28 Day Pack [facility] ([facility]) Isibloom 28 Day Pack 0.15-0.03 mg DESOGESTREL-ETHINYL ESTRAD IOL 05/23/2019 12:00:00 AM EST tablet 84 TAKE ONE TABLET BY MOUTH EVERY DAY TAKE ONE TABLET BY MOUTH EVERY DAY SOLD: 05/03/2020 [facility] Insurance Providers Payer name Policy type / Coverage type Policy ID Covered democrat ID Covered democrat's relationship to prieto Policy Prieto Plan Information [employer] and [employer] - [place] Blue Cross/B e Shield [id number] Self [id number] BCBS [place] PPO 302/307 [id number] SP [id number] BCBS [facility] [id number] SP [id number] BCBS [facility] [id number] SP [id number] BCBS OF [place] 306/806 [id number] SP [id number] SELF PAY ONLY UNAVAILABLE SP UNAV AILABLE UNHC COMMUNITY PLAN [facility] [id number] SP [id number] [facility] [id number] SP [id number] Community Plan - [facility] Commercial [id number] Self [id number] [employer] BCBS B [id number] S [id number] BCBS OF [place]AT[place] 306/[id number] SP [id number] [facility] Commercial [id number] Self [id number] BC/[place] Commercial [id number] Self [id number] BCBS/[place] Commercial [id number] Self BC/[place] Medigap Part B [id number] [facility] Commercial [id number] Self BCBS [place] PPO 302/307 [id number] [facility](MCAID) O [id number] S [id number] [facility] O [id number] S [id number] BC/BS OF [place] B [id number] S [place] [id number] [facility] [id number] SELF PAY UNAVAILABLE SP UNAVAILA BLE [facility] [id number] 19 [id number] [facility] [id number] SP [id number] Problems, Conditions, and Diagnoses No Information Surgeries/Procedures Procedure Description Date Indications Data Source(s) CVR Cyber Workforce Developer And Manager.Svc. STI / H 11/25/2020 12:00:00 AM EDT - 11/25/2020 12:00:00 AM EDT [facility] ([facility]) CVR Cyber Workforce Developer And Manager.Svc. Contraceptive 11/25/2020 12 :00:00 AM EDT - 11/25/2020 12:00:00 AM EDT [facility] ([facility]) CVR Med.Svc. Height/Weight 11/25/2020 12 :00:00 AM EDT - 11/25/2020 12:00:00 AM EDT [facility] ([facility]) CVR Blood Pressure 11/25/2020 12:00:00 AM EDT - 2020 12:00:00 AM EDT [facility] ([facility]) HCS Without Test 11/25/2020 12:00:00 AM EDT - 11/26/19 21 12:00:00 AM EDT [facility] ([facility]) OFFICE VISIT, EST 11/25/2020 12:00:00 AM EDT - 021 12:00:00 AM EDT [facility] ([facility]) CVR Cyber Workforce Developer And Manager.Svc. STI / H 10/21/2020 12:00:00 AM EDT - 10/21/2020 12:00:00 AM EDT [facility] ([facility]) CVR Cyber Workforce Developer And Manager.Svc. Other 10/21/2020 12:00:00 AM EDT - 2020 12:00:00 AM EDT [facility] ([facility]) CVR Cyber Workforce Developer And Manager.Svc. Contraceptive 10/21/2020 12 :00:00 AM EDT - 10/21/2020 12:00:00 AM EDT [facility] ([facility]) CVR Med.Svc. Height/Weight 10/21/2020 12 :00:00 AM EDT - 10/21/2020 12:00:00 AM EDT [facility] ([facility]) CVR Blood Pressure 10/21/2020 12:00:00 AM EDT - 2020 12:00:00 AM EDT [facility] ([facility]) OFFICE VISIT, EST 10/21/2020 12:00:00 AM EDT - 021 12:00:00 AM EDT [facility] ([facility]) CVR Cyber Workforce Developer And Manager.Svc. STI / H 07/31/2020 12:00:00 AM EST - 07/31/2020 12:00:00 AM EST [facility] ([facility]) CVR Cyber Workforce Developer And Manager.Svc. Other 07/31/2020 12:00:00 AM EST - 2020 12:00:00 AM EST [facility] ([facility]) CVR Cyber Workforce Developer And Manager.Svc. Contraceptive 07/31/2020 12 :00:00 AM EST - 07/31/2020 12:00:00 AM EST [facility] ([facility]) CVR Med.Svc. Method Cessation 07/31/2020 12:00:00 AM EST - 07/31/2020 12:00:00 AM EST [facility] ([facility]) CVR Med.Svc. Method Initiation 12:00:00 AM EST - 07/31/2020 12:00:00 AM EST [facility] ([facility]) CVR Med.Svc. Extremities 07/31/2020 12:0 0:00 AM EST - 07/31/2020 12:00:00 AM EST [facility] ([facility]) CVR Med.Svc. Abdominal Palp. 07/31/2020 12:00:00 AM EST - 07/31/2020 12:00:00 AM EST [facility] ([facility]) CVR Med.Svc. Breast Exam 07/31/2020 12:0 0:00 AM EST - 07/31/2020 12:00:00 AM EST [facility] ([facility]) CVR Med.Svc. Heart/Lung Ausc. 07/31/2020 12:00:00 AM EST - 07/31/2020 12:00:00 AM EST [facility] ([facility]) CVR Med.Svc. Thyroid Palp. 07/31/2020 12 :00:00 AM EST - 07/31/2020 12:00:00 AM EST [facility] ([facility]) CVR Blood Pressure 07/31/2020 12:00:00 AM EST - 2020 12:00:00 AM EST [facility] ([facility]) HCS Without Test 07/31/2020 12:00:00 AM EST - 07/31/19 12:00:00 AM EST [facility] ([facility]) PREV VISIT, EST, AGE 18-39 07/31/2020 12 :00:00 AM EST - 07/31/2020 12:00:00 AM EST [facility] ([facility]) N.GONORRHOEAE, Rectal 07/31/2020 12:00:00 AM EST - 07/31/2020 12:00:00 AM EST [facility] ([facility]) CHYLMD TRACH, Rectal 07/31/2020 12:00:00 AM EST - 07/31/2020 12:00:00 AM EST [facility] ([facility]) N.GONORRHOEAE, Pharyngeal 07/31/2020 12: 00:00 AM EST - 07/31/2020 12:00:00 AM EST [facility] ([facility]) CHYLMD TRACH, Pharyngeal 07/31/2020 12:0 0:00 AM EST - 07/31/2020 12:00:00 AM EST [facility] ([facility]) N.GONORRHOEAE, URINE 07/31/2020 12:00:00 AM EST - 07/31/2020 12:00:00 AM EST [facility] ([facility]) CHYLMD TRACH, URINE 07/31/2020 12:00:00 AM EST - 07/31 12:00:00 AM EST [facility] ([facility]) URINE TEST 07/31/2020 12:00:00 AM EST - 07/31/2020 12:00:00 AM EST [facility] ([facility]) Results ID Date Data Source [id number] 07/31/2020 10:47:50 AM EST [facility] ([facility]) Name Value Range Interpretation Code Description Data Seema rce(s) Supporting Document(s) NegativeLot: [id number]: 02/18/2022 High Sensitivity Urine Test [facility] ([facility]) Procedure Social History Code Duration Value Status Description Data Source(s ) Smoking 05/20/2021 12:00:00 AM EST Never Smoker completed Never S moker eCW1 ([facility]) Smoking 02/11/2021 12:00:00 AM EDT Never Smoker completed Never S moker eCW1 ([facility]) Smoking 02/11/2021 12:00:00 AM EDT Never Smoker completed Never S moker eCW1 ([facility]) Smoking 02/11/2021 12:00:00 AM EDT Never Smoker completed Never S moker eCW1 ([facility]) Smoking 01/23/2021 12:00:00 AM EDT Never smoker completed Never s moker [facility] ([facility]) Vital Signs ID Date Data Source UNK Name Value Range Interpretation Code Description Data Source(s) Body weight 162 [lb_av] 162 [lb_av] eCW1 ([facility]) Body weight 73.48 kg 73.48 kg W1 ([facility]) Body height 66 [in_i] 66 [in_i] eCW1 ([facility]) Body mass index (BMI) [Ratio] 26.14 kg/m2 26.14 kg/m2 eCW1 ([facility]) Systolic blood pressure 114 mm[Hg] 114 mm[Hg] e CW1 ([facility]) Diastolic blood pressure 80 mm[Hg] 80 mm[Hg] eCW1 ([facility]) Body weight 182.6 [lb_av] 182.6 [lb_av] eCW1 ([facility]) Body height 66 [in_i] 66 [in_i] eCW1 ([facility]) Body mass index (BMI) [Ratio] 29.47 kg/m2 29.47 kg/m2 eCW1 ([facility]) Systolic blood pressure 122 mm[Hg] 122 mm[Hg] e CW1 ([facility]) Diastolic blood pressure 84 mm[Hg] 84 mm[Hg] eCW1 ([facility]) Body height 167.64 cm 167.64 cm [facility] Body weight 77.111 kg 77.111 kg [facility] ([facility] [facility]) Body mass index (BMI) [Ratio] 27.44 kg/m2 Overweight 27.44 kg/m2 [facility] ([facility]) Body height 167.64 cm 167.64 cm [facility]) Body height 167.64 cm 167.64 cm [facility] Body weight 79.651 kg 79.651 kg [facility] ([facility]) Systolic blood pressure 122 mm[Hg] 122 mm[Hg] N [facility] ([facility]) Diastolic blood pressure 78 mm[Hg] 78 mm[Hg] [facility] ([facility]) Body mass index (BMI) [Ratio] 28.34 kg/m2 Overweight 28.34 kg/m2 [facility] ([facility]) Patient Treatment Plan of Care Planned Activity Planned Date Details Description Data Source (s) Fluconazole 150 MG Oral Tablet 11/25/2020 12:00:00 AM EDT [facility] ([facility]) Lluvia-BE 0.35 mg tablet 07/31/2020 12:00:00 AM EST [facility] ([facility]) Apri 0.15 mg-0.03 mg tablet 07/29/2020 12:00:00 AM EST [facility] ([facility]) Fluconazole 150 MG Oral Tablet 01/24/2020 12:00:00 AM EDT [facility] ([facility]) Apri 0.15 mg-0.03 mg tablet 05/23/2019 12:00:00 AM EST [facility] ([facility])
--- OUTSIDE RECORDS SUMMARY | 2021-05-30 06:11 | CCD ---
Author Author [facility] Organization [facility] Address Unknown Phone Unavailable Care Team Providers Care Vacuum Cleaner Assembler Name Role Phone Kerr, Josue Unavailable PROBLEMS No Information ALLERGIES No Known Allergies ENCOUNTERS from 1990 to 2021-05-19 Encounter Location Date Provider Diagnosis [facility] [address] [place] [address] [place] [address] Apr, Josue Kerr IMMUNIZATIONS No Information SOCIAL HISTORY [...] Information RESULTS No Results REASON FOR VISIT appt Goals Section No Information Health Concerns No Information MEDICAL EQUIPMENT No Information MENTAL STATUS No Information FUNCTIONAL STATUS No Information ASSESSMENTS No Information PLAN OF TREATMENT Next Appt Details Provider Name:Josue Kerr, 02:20:00 PM, [address] [place] [address] , [place], [address], Provider Name:Josue Kerr, 07:30:00 AM, [address] [place] [address] , [place], [address], Provider Name:Josue Kerr, 11:20:00 AM, [address] [place] [address] , [place], [address], Insurance Providers Payer Name Payer Address Payer Phone Insured Name Patient Relati onship to Insured Coverage Start Date Coverage End Date [employer] PPO [phone] [facility] [place] [id number] DEANNA DONOVAN self
[2021-05-30] MEDS ORDERED: ACET-907 PO (06:27)
[2021-05-30 06:53] LABS: HEMATOCRIT 39.6 % (36.0-47.0); HEMOGLOBIN 12.8 g/dl (12.0-15.5); MEAN CORPUSCULAR HEMOGLOBIN 30.8 pg (27.0-33.0); MEAN CORPUSCULAR HGB CONC 32.3 g/dl (32.0-36.5); MEAN CORPUSCULAR VOLUME 95.4 fl (80.0-96.0); PLATELET COUNT, AUTOMATED 312 10^3/uL (150-450); RED BLOOD COUNT 4.15 10^6/uL (4.00-5.40); WHITE BLOOD COUNT 6.2 10^3/uL (4.0-10.0)
[2021-05-30] MEDS ORDERED: LIDOCAINE 2% 100MG/5ML SDV (FOR ANES.) As Ordered ONE ×2 (06:53→06:55)
[2021-05-30] MEDS ORDERED: fentaNYL 100 MCG/2 ML INJECTION (J3010) As Ordered ONE (06:54)
[2021-05-30] MEDS ORDERED: propofoL 200 MG/20 ML VIAL As Ordered ONE (06:54)
[2021-05-30] MEDS ORDERED: MIDAZOLAM INJ 2MG/2ML VIAL (J2250 PER 1MG) As Ordered ONE (06:54)
[2021-05-30] MEDS ORDERED: ROCURONIUM BROMIDE 50 MG/5 ML VIAL As Ordered ONE (06:54)
[2021-05-30] MEDS ORDERED: BUPIVACAINE HCL 0.25% 10ML VIAL As Ordered ONE ×2 (07:08→08:33)
[2021-05-30] MEDS ORDERED: SILVER NITRATE APPLICATOR As Ordered ONE (07:08)
[2021-05-30 07:14] LABS: HCG, SERUM QUALITATIVE NEGATIVE (NEGATIVE)
[2021-05-30] MEDS ORDERED: SCOPOLAMINE 1MG TRANSDERMAL PATCH TOP ONE (07:25)
[2021-05-30] MEDS ORDERED: ESMOLOL INJ 100MG/10ML VIAL As Ordered ONE (07:58)
[2021-05-30] MEDS ORDERED: ACETAMINOPHEN 1000MG 100ML IV BTL (OFIRMEV) (J0131 PER 10MG) As Ordered ONE (08:02)
[2021-05-30] MEDS ORDERED: dexameTHASONE 4 MG/ML 1ML VIAL (J1100 PER 1MG) As Ordered ONE (08:08)
[2021-05-30] MEDS ORDERED: PHENYLephrine 500MCG 5ML (100MCG/ML) SYRINGE As Ordered ONE ×2 (08:08→08:31)
[2021-05-30] MEDS ORDERED: SUGAMMADEX SODIUM 500 MG/5 ML VIAL (BRIDION) As Ordered ONE (08:09)
[2021-05-30] MEDS ORDERED: ONDANSETRON 4MG/2ML VIAL As Ordered ONE (08:09)
[2021-05-30] MEDS ORDERED: KETOROLAC 60MG 2ML VIAL As Ordered ONE (08:24)
[2021-05-30] MEDS ORDERED: ePHEDrine SULFATE 25 MG/5 ML(5MG/ML) SYRINGE As Ordered ONE (08:36)
[2021-05-30] MEDS ORDERED: PERC5TAB12 PO (08:56)
--- NOTE | 2021-05-30 08:56 | ROOPDOC ---
[facility] Report Of Operation Report of Operation Date of procedure: 05/30/2021 Preoperative diagnosis: Satisfied parity. Postoperative diagnosis: Same Procedure: Laparoscopic bilateral salpingectomy and Nexplanon removal from left inner arm Anesthesia: Gen. endotracheal Estimated blood loss 5 mL IV fluids replaced 900 mL lactated Ringer's Drains: In and out catheter 200 mL of urine Complications: None Preoperative antibiotics: None indicated Specimens: Bilateral fallopian tubes Intraoperative findings: Normal size, shape, contour of the uterus. Normal adnexa/ovaries bilaterally. Minimal pelvic adhesions Procedure: The patient was counseled and consented on the risks, benefits, indications, and alternatives of the procedure. Informed consent was obtained. She was taken to the operating room with an IV running. She was placed on the operating table in the dorsal supine position. Gen. anesthesia was administered and the airway was secured without any difficulty. A timeout was performed per protocol. She was prepared and draped in the normal sterile fashion. Attention was turned to the pelvis. The bladder was drained with in and out sterile catheter. A speculum was placed into the vagina with good visualization of the cervix. A single- tooth tenaculum was placed on the anterior lip of the cervix and downward traction was applied. The cervix was sequentially dilated with Vinny dilators up to a #16. A ZUMI uterine manipulator was placed without any difficulty. The single-tooth tenaculum was removed. The tenaculum sites were noted to be hemostatic. A sterile glove switch was performed. Attention was turned to the abdomen. A 5mm umbilical incision was made with the 11 blade. Through this incision, a Veress needle was placed into the intraperitoneal cavity. Intraperitoneal placement was confirmed with ease of flow of normal saline, a positive drop test and no return on aspiration. The opening pressure was 2 mmHg. The abdomen was insufflated with 2 L of CO2. The Veress needle was removed. A 5 mm laparoscopic trocar was placed under direct visualization without any difficulty, and intraperitoneal placement was confirmed. No incidental bleeding or injury was evident. The patient was placed in steep Trendelenburg. 2 additional laparoscopic port sites were placed through 5 mm incisions in the lower left quadrant. Each trocar/cannula was placed under direct visualization without any difficulty, incidental bleeding or injury. Attention was turned to the right fallopian tube. The right fallopian tube was followed out to the fimbriated end, grasped and elevated. The underlying mesosalpinx was sequentially clamped, coagulated and transected, until the level of the cornu was reached. At this level, the fallopian tube was clamped, coagulated and transected, thus amputating the fallopian tube. The fallopian tube was brought through the cannula without any difficulty and sent to pathology for permanent section. Attention was turned to the left fallopian tube. The left fallopian tube was followed out to the fimbriated end, grasped and elevated. The underlying mesosalpinx was sequentially clamped, coagulated and transected, until the level of the cornu was reached. At this level the fallopian tube was clamped, coagulated and transected, thus amputating the fallopian tube. The fallopian tube was brought to the cannula without any difficulty and sent to pathology for permanent section. Both right and left surgical sites were noted to be completely hemostatic. The gas was released from the abdomen. The patient was taken out of Trendelenburg position. The cannulas were removed. The skin incisions were closed with 4-0 Monocryl in subcuticular fashion and reinforced with Dermabond. The uterine manipulator was removed, the vagina was noted to be clear of any sponge or instrument. Sponge, needle and instrument counts were correct per protocol. Attention was turned to the left inner arm, which was sterilely prepped and draped. A 2mm javier in the left inner arm was made with the 11 blade, and the Nexplanon implant was removed without any difficulty. A bandage was placed over this site. The patient tolerated the entire procedure very well. She was transferred to the PACU in good and stable condition. DO PERRY Louis JONATHAN R. DO May 30, 2021 08:56
[2021-05-30] MEDS ORDERED: IBUP80TA PO (08:58)
[2021-05-30] MEDS ORDERED: COLA100C5 PO (08:59)
[2021-05-30] MEDS ORDERED: METOCLOPRAMIDE INJ 10MG/2ML VIAL (J2765 PER 1) IV PRN (09:10)
[2021-05-30] MEDS ORDERED: LR 1,000 ML IV SCH ×2 (09:10)
[2021-05-30] MEDS ORDERED: fentaNYL 100 MCG/2 ML INJECTION (J3010) IV PRN (09:10)
[2021-05-30] MEDS ORDERED: ONDANSETRON 4MG/2ML VIAL IV PRN (09:10)
[2021-05-30] MEDS ORDERED: oxyCODONE 5MG TAB PO PRN (09:10)
[2021-05-30 11:00] VITALS: BP 110/66
== END 2021-05-30 11:27 | disposition home or self-care (01) ==
LOC: M SDC 06:03
PROVIDERS: ATTEND Obstetrics & Gynecology
DX: Z30.2 Encounter for sterilization (principal); Z30.46 Encounter for surveillance of implantable subdermal contraceptive
CPT/HCPCS: 11982; 36415; 58661; 84703; 85027; 86850; 86900; 86901; 88302; J0131; J1100; J1885; J2250; J2370; J2405; J3010

== ENCOUNTER → 2022-07-13 | Outpatient (REF) | payer BC ==
[~2022-07-13] MED LIST changes: +ACET-907 PO; +COLA100C5 PO; +IBUP80TA PO; -LIDOCAINE 1% MDV 20ML VIAL SQ PRN; -LR 1,000 ML IV ONE; +PERC5TAB12 PO
== END ==
LOC: M PLALAB 09:56
PROVIDERS: ATTEND Nurse Practitioner Family
DX: N89.8 Other specified noninflammatory disorders of vagina (principal)

== ENCOUNTER → 2022-10-07 | Outpatient (REF) | payer BC | LOC: M LAB REF 20:15 | PROVIDERS: ATTEND Physician Assistant | DX: R21 Rash and other nonspecific skin eruption (principal); R10.816 Epigastric abdominal tenderness ==

== ENCOUNTER → 2022-10-08 | Outpatient (CLI) | payer BC ==
[2022-10-08 13:29] LABS: BASO % 0.2 % (0.0-1.0); HEMATOCRIT 41.9 % (36.0-47.0); HEMOGLOBIN 13.7 g/dl (12.0-15.5); LIPASE 21 U/L (12-53); LYMPH # 0.9 10^3/uL (1.5-5.0); LYMPH % 4.4 % (24.0-44.0); MEAN CORPUSCULAR HEMOGLOBIN 30.9 pg (27.0-33.0); MEAN CORPUSCULAR HGB CONC 32.7 g/dl (32.0-36.5); MEAN CORPUSCULAR VOLUME 94.6 fl (80.0-96.0); MONO # 0.4 10^3/uL (0.0-0.8); MONO % 2.3 % (2.0-8.0); NEUTROPHILS # 17.9 10^3/uL (1.5-8.5); NEUTROPHILS % 92.7 % (36.0-66.0); PLATELET COUNT, AUTOMATED 333 10^3/uL (150-450); RED BLOOD COUNT 4.43 10^6/uL (4.00-5.40); WHITE BLOOD COUNT 19.3 10^3/uL (4.0-10.0)
[2022-10-08 13:30] LABS: IRON (FE) 22 UG/DL (50-170)
[2022-10-08 13:31] LABS: AMYLASE 32 U/L (30-118); PERCENT SATURATION 8.4 % (13.2-45.0); TOTAL IRON BINDING CAPACITY 263 UG/DL (250-425)
[2022-10-08 13:33] LABS: ALBUMIN 3.9 G/DL (3.2-5.2); ALKALINE PHOSPHATASE 67 U/L (46-116); ALT/SGPT 83 U/L (7.0-40); AST/SGOT 64 U/L (<34); BILIRUBIN,TOTAL 0.5 MG/DL (0.3-1.2); BLOOD UREA NITROGEN 10 MG/DL (9-23); CALCIUM LEVEL 9.1 MG/DL (8.5-10.1); CARBON DIOXIDE LEVEL 24 MMOL/L (20-31); CHLORIDE LEVEL 104 MMOL/L (98-107); CREATININE FOR GFR 0.69 MG/DL (0.55-1.30); FREE T4 1.02 NG/DL (0.89-1.76); GLOMERULAR FILTRATION RATE > 60.0 (>60); GLUCOSE, FASTING 116 MG/DL (60-100); SODIUM LEVEL 137 MMOL/L (136-145); THYROID STIMULATING HORMONE 1.249 uIU/ML (0.55-4.78); TOTAL PROTEIN 7.3 G/DL (5.7-8.2)
== END ==
LOC: M WUC 09:59
PROVIDERS: ATTEND Physician Assistant
DX: R21 Rash and other nonspecific skin eruption (principal); R10.816 Epigastric abdominal tenderness; R53.83 Other fatigue

== ENCOUNTER → 2023-01-28 | Outpatient (REF) | payer BC ==
[~2023-01-28] MED LIST changes: +DICY-61 PO; -DICY10CA13 PO
[2023-01-28 12:30] LABS: BASO # 0.1 10^3/uL (0.0-0.2); BASO % 1.1 % (0.0-1.0); EOS # 0.1 10^3/uL (0.0-0.5); EOS % 1.5 % (0.0-3.0); HEMOGLOBIN 13.2 g/dl (12.0-15.5); LYMPH # 2.1 10^3/uL (1.5-5.0); LYMPH % 38.6 % (24.0-44.0); MEAN CORPUSCULAR HEMOGLOBIN 31.1 pg (27.0-33.0); MEAN CORPUSCULAR VOLUME 94.3 fl (80.0-96.0); MONO # 0.4 10^3/uL (0.0-0.8); MONO % 7.9 % (2.0-8.0); NEUTROPHILS # 2.7 10^3/uL (1.5-8.5); NEUTROPHILS % 50.7 % (36.0-66.0); PLATELET COUNT, AUTOMATED 337 10^3/uL (150-450); RED BLOOD COUNT 4.24 10^6/uL (4.00-5.40); WHITE BLOOD COUNT 5.4 10^3/uL (4.0-10.0)
[2023-01-28 13:08] LABS: ALBUMIN 4.1 G/DL (3.2-5.2); ALKALINE PHOSPHATASE 46 U/L (46-116); ALT/SGPT 17 U/L (7.0-40); AST/SGOT 10 U/L (<34); BILIRUBIN,TOTAL 0.5 MG/DL (0.3-1.2); BLOOD UREA NITROGEN 12 MG/DL (9-23); CALCIUM LEVEL 9.4 MG/DL (8.5-10.1); CARBON DIOXIDE LEVEL 29 MMOL/L (20-31); CHLORIDE LEVEL 105 MMOL/L (98-107); CHOLESTEROL LEVEL 202 MG/DL (<200); CHOLESTEROL RISK RATIO 2.75 (<5); CREATININE FOR GFR 0.65 MG/DL (0.55-1.30); GLOMERULAR FILTRATION RATE > 60.0 (>60); GLUCOSE, FASTING 82 MG/DL (60-100); HDL CHOLESTEROL 73.3 MG/DL (>40); LDL CHOLESTEROL 116.9 MG/DL (<100); MAGNESIUM LEVEL 1.9 MG/DL (1.8-2.4); NON-HDL-C 128.7 MG/DL; POTASSIUM SERUM 4.6 MMOL/L (3.5-5.1); SODIUM LEVEL 142 MMOL/L (136-145); THYROID STIMULATING HORMONE 2.002 uIU/ML (0.55-4.78); TOTAL 25(OH) VITAMIN D 35.6 NG/ML (20.0-100.0); TOTAL PROTEIN 6.9 G/DL (5.7-8.2); TRIGLYCERIDES LEVEL 59 MG/DL (<150)
[2023-01-28 13:30] LABS: HEMOGLOBIN A1c 5.4 % (4.0-6.0)
== END ==
LOC: M LAB REF 11:16
PROVIDERS: ATTEND Nurse Practitioner Family
DX: Z13.228 Encounter for screening for other metabolic disorders (principal)

== ENCOUNTER → 2023-07-19 | Outpatient (REF) | payer BC ==
[2023-07-19 15:26] LABS: BASO # 0.1 10^3/uL (0.0-0.2); EOS # 0.1 10^3/uL (0.0-0.5); EOS % 1.9 % (0.0-3.0); HEMATOCRIT 41.9 % (36.0-47.0); HEMOGLOBIN 13.6 g/dl (12.0-15.5); LYMPH # 1.9 10^3/uL (1.5-5.0); LYMPH % 30.6 % (24.0-44.0); MEAN CORPUSCULAR HEMOGLOBIN 31.5 pg (27.0-33.0); MEAN CORPUSCULAR HGB CONC 32.5 g/dl (32.0-36.5); MONO # 0.5 10^3/uL (0.0-0.8); MONO % 7.7 % (2.0-8.0); NEUTROPHILS # 3.7 10^3/uL (1.5-8.5); NEUTROPHILS % 58.6 % (36.0-66.0); PLATELET COUNT, AUTOMATED 344 10^3/uL (150-450); RED BLOOD COUNT 4.32 10^6/uL (4.00-5.40); WHITE BLOOD COUNT 6.3 10^3/uL (4.0-10.0)
== END ==
LOC: M LAB REF 12:21
PROVIDERS: ATTEND Nurse Practitioner Family
DX: R53.83 Other fatigue (principal)

== ENCOUNTER 2023-07-23 23:53 | Emergency (ER) | payer BC ==
[~2023-07-23] VITALS: Ht 170.2 cm; Wt 81.9 kg
[2023-07-23 23:54] VITALS: BP 127/76; TEMP 98.3; O2SAT 100
== END 2023-07-24 02:23 | disposition left against medical advice (07) ==
LOC: M ED 23:53
DX: Z53.21 Procedure and treatment not carried out due to patient leaving prior to being seen by health care provider (principal)

== ENCOUNTER → 2023-07-27 | Outpatient (CLI) | payer BC | LOC: M WHC 07:26 | PROVIDERS: ATTEND Internal Medicine Gastroenterology | DX: R10.13 Epigastric pain (principal) ==

== ENCOUNTER → 2023-09-24 | Outpatient (CLI) | payer BC ==
[2023-09-24 12:41] LABS: HEMATOCRIT 40.2 % (36.0-47.0); HEMOGLOBIN 13.3 g/dl (12.0-15.5); MEAN CORPUSCULAR HEMOGLOBIN 31.9 pg (27.0-33.0); MEAN CORPUSCULAR HGB CONC 33.1 g/dl (32.0-36.5); MEAN CORPUSCULAR VOLUME 96.4 fl (80.0-96.0); PLATELET COUNT, AUTOMATED 348 10^3/uL (150-450); RED BLOOD COUNT 4.17 10^6/uL (4.00-5.40)
[2023-09-24 13:11] LABS: LIPASE 39 U/L (12-53); THYROID STIMULATING HORMONE 2.755 uIU/ML (0.55-4.78)
[2023-09-24 13:13] LABS: ALBUMIN 4.1 G/DL (3.2-5.2); ALKALINE PHOSPHATASE 49 U/L (46-116); ALT/SGPT 31 U/L (7.0-40); AMYLASE 68 U/L (30-118); AST/SGOT 15 U/L (<34); BILIRUBIN,TOTAL 0.4 MG/DL (0.3-1.2); BLOOD UREA NITROGEN 10 MG/DL (9-23); CALCIUM LEVEL 9.4 MG/DL (8.5-10.1); CARBON DIOXIDE LEVEL 32 MMOL/L (20-31); CHLORIDE LEVEL 105 MMOL/L (98-107); CHOLESTEROL LEVEL 196 MG/DL (<200); CHOLESTEROL RISK RATIO 2.94 (<5); CREATININE FOR GFR 0.69 MG/DL (0.55-1.30); GLOMERULAR FILTRATION RATE > 60.0 (>60); GLUCOSE, FASTING 91 MG/DL (60-100); HDL CHOLESTEROL 66.6 MG/DL (>40); LDL CHOLESTEROL 114.4 MG/DL (<100); NON-HDL-C 129.4 MG/DL; POTASSIUM SERUM 4.1 MMOL/L (3.5-5.1); SODIUM LEVEL 142 MMOL/L (136-145); TOTAL PROTEIN 6.7 G/DL (5.7-8.2); TRIGLYCERIDES LEVEL 75 MG/DL (<150)
[2023-09-24 13:17] LABS: HEMOGLOBIN A1c 4.7 % (4.0-6.0)
== END ==
LOC: M WUC 09:57
PROVIDERS: ATTEND Dermatology
DX: E07.9 Disorder of thyroid, unspecified (principal)

== ENCOUNTER 2023-12-13 08:19 | Day surgery (SDC) | payer BC ==
[~2023-12-13] VITALS: Ht 167.6 cm; Wt 72.6 kg
[~2023-12-13 08:19] MED LIST changes: +NS 1,000 ML IV ONE; +SERT25TA21 PO
[2023-12-13] MEDS ORDERED: propofoL 200 MG/20 ML VIAL As Ordered ONE (10:04)
[2023-12-13 10:24] VITALS: TEMP 97.4
[2023-12-13 10:50] VITALS: BP 107/66; O2SAT 98
== END 2023-12-13 10:52 | disposition home or self-care (01) ==
LOC: M OPP 08:19
PROVIDERS: ATTEND Internal Medicine Gastroenterology
DX: K64.8 Other hemorrhoids (principal); Z80.0 Family history of malignant neoplasm of digestive organs; R19.4 Change in bowel habit; D80.2 Selective deficiency of immunoglobulin A [IgA]; R12 Heartburn; R10.12 Left upper quadrant pain; K31.89 Other diseases of stomach and duodenum; Z79.1 Long term (current) use of non-steroidal anti-inflammatories (NSAID)

== ENCOUNTER → 2024-04-10 | Outpatient (CLI) | payer BC ==
[~2024-04-10] MED LIST changes: -NS 1,000 ML IV ONE
[2024-04-10 13:20] LABS: BASO # 0.1 10^3/uL (0.0-0.2); BASO % 1.2 % (0.0-1.0); EOS # 0.1 10^3/uL (0.0-0.5); EOS % 1.9 % (0.0-3.0); HEMATOCRIT 40.5 % (36.0-47.0); HEMOGLOBIN 13.2 g/dl (12.0-15.5); LYMPH # 1.8 10^3/uL (1.5-5.0); LYMPH % 31.8 % (24.0-44.0); MEAN CORPUSCULAR HEMOGLOBIN 31.9 pg (27.0-33.0); MEAN CORPUSCULAR HGB CONC 32.6 g/dl (32.0-36.5); MEAN CORPUSCULAR VOLUME 97.8 fl (80.0-96.0); MONO # 0.4 10^3/uL (0.0-0.8); MONO % 6.8 % (2.0-8.0); NEUTROPHILS # 3.3 10^3/uL (1.5-8.5); PLATELET COUNT, AUTOMATED 316 10^3/uL (150-450); RED BLOOD COUNT 4.14 10^6/uL (4.00-5.40); WHITE BLOOD COUNT 5.7 10^3/uL (4.0-10.0)
[2024-04-10 13:25] LABS: ALBUMIN 3.9 G/DL (3.2-5.2); ALKALINE PHOSPHATASE 48 U/L (46-116); ALT/SGPT 18 U/L (7.0-40); AST/SGOT 12 U/L (<34); BILIRUBIN,TOTAL 0.3 MG/DL (0.3-1.2); BLOOD UREA NITROGEN 8 MG/DL (9-23); CALCIUM LEVEL 9.8 MG/DL (8.5-10.1); CARBON DIOXIDE LEVEL 27 MMOL/L (20-31); CHLORIDE LEVEL 110 MMOL/L (98-107); CREATININE FOR GFR 0.71 MG/DL (0.55-1.30); GLOMERULAR FILTRATION RATE > 60.0 (>60); GLUCOSE, FASTING 86 MG/DL (60-100); POTASSIUM SERUM 4.2 MMOL/L (3.5-5.1); SODIUM LEVEL 141 MMOL/L (136-145); THYROID STIMULATING HORMONE 2.442 uIU/ML (0.55-4.78)
[2024-04-10 13:41] LABS: ERYTHROCYTE SEDIMENTATION RATE 6 mm/hr (0-20)
[2024-04-10 14:47] LABS: RHEUMATOID FACTOR QUANT 6.8 IU/ML (<14)
[2024-04-10 14:52] LABS: THYROID PEROXIDASE ANTIBODY 29 U/ML (<60.0)
[2024-04-11 15:12] LABS: ANA SCREEN, IFA NEGATIVE (NEGATIVE)
[2024-04-11 16:08] LABS: THRYOGLOBULIN ANTIBODIES (ATA) 1 IU/mL (< or = 1); THYROGLOBULIN QUANTITATIVE 7.6 ng/mL (2.8-40.9)
== END ==
LOC: M WUC 09:41
PROVIDERS: ATTEND Allergy & Immunology Allergy
DX: R21 Rash and other nonspecific skin eruption (principal); L50.1 Idiopathic urticaria

== ENCOUNTER → 2024-05-01 | Outpatient (REF) | payer BC | LOC: M PLALAB 10:54 | PROVIDERS: ATTEND Obstetrics & Gynecology | DX: Z01.419 Encounter for gynecological examination (general) (routine) without abnormal findings (principal) ==

== ENCOUNTER → 2024-06-15 | Outpatient (REF) | payer BC | LOC: M LAB REF 12:11 | PROVIDERS: ATTEND Student in an Organized Health Care Education/Training Program | DX: R30.0 Dysuria (principal) ==

== ENCOUNTER → 2024-06-27 | Outpatient (REF) | payer BC | LOC: M LAB REF 09:03 | PROVIDERS: ATTEND Physician Assistant | DX: N39.0 Urinary tract infection, site not specified (principal) ==

== ENCOUNTER → 2024-07-13 | Outpatient (REF) | payer BC ==
[2024-07-13 13:20] LABS: Trichomonas vaginalis (AMP) NOT DETECTED (NEGATIVE)
[2024-07-13 13:44] LABS: GC DNA AMPLIFICATION NEGATIVE (NEGATIVE)
== END ==
LOC: M LAB REF 11:12
PROVIDERS: ATTEND Nurse Practitioner Family
DX: R10.2 Pelvic and perineal pain (principal); R87.615 Unsatisfactory cytologic smear of cervix; Z11.51 Encounter for screening for human papillomavirus (HPV)

== ENCOUNTER → 2024-09-07 | Outpatient (REF) | payer BC | LOC: M SFHCWAGY 14:54 | PROVIDERS: ATTEND Nurse Practitioner Family | DX: N89.8 Other specified noninflammatory disorders of vagina (principal) ==

== ENCOUNTER → 2025-03-30 | Outpatient (CLI) | payer OTHER | LOC: M RAD 09:18 | PROVIDERS: ATTEND Nurse Practitioner Family | DX: R10.20 Pelvic and perineal pain unspecified side (principal); N85.8 Other specified noninflammatory disorders of uterus; N83.202 Unspecified ovarian cyst, left side ==